=== PATIENT | female | born 1990 | race Caucasian/White ===

== ENCOUNTER 2023-04-01 21:03 | Observation (INO) | payer MEDICAID ==
--- NOTE | 2023-04-01 21:30 | ERPHSYRPT ---
- History of Present Illness Time Seen by Provider: 04/01/23 21:28 Historian: patient Exam Limitations: no limitations Physician History: Patient is a 32-year-old female presents to our ED for evaluation of shortness of breath cough nausea and distended abdomen. Patient admits to history of congestive heart failure. Symptoms started just prior to arrival. Patient exp eriencing pain in the epigastrium. No trauma. No fever. Symptoms are constant. Symptoms are moderate in intensity. No specific worsening improving factors. HPI limited as patient is anxious and under mild to moderate distress. Patient voices no other complaints or concerns at this time. Timing/Duration: today Activities at Onset: none Quality: aching Abdominal Pain Onset Location: epigastric Pain Radiation: no radiation Severity of Pain-Max: moderate Severity of Pain-Current: mild Associated Symptoms: other (Posterior symptom is cough) Previous symptoms: no prior history Allergies/Adverse Reactions: cephalexin [From Keflex] Allergy (Verified 04/01/23 21:21) Home Medications: Acetaminophen 325 mg [Tylenol 325 mg] 650 mg PO QID 04/01/23 [History] Albuterol Sulfate [Albuterol Sulfate Hfa] 2 puff IH Q4HPRN PRN 04/01/23 [History] Alprazolam [Xanax] 1 mg PO BID 04/01/23 [History] Amoxicillin 500 mg PO TID 04/01/23 [History] Apixaban [Eliquis] 5 mg PO BID 04/01/23 [History] Azithromycin [Azithromycin 250 mg Pack] 250 mg PO DAILY 04/01/23 [History] Benzonatate 200 mg PO TID 04/01/23 [History] Buspirone HCl 7.5 mg PO BID 04/01/23 [History] Carvedilol 3.125 mg [Coreg 3.125 MG] 3.125 mg PO BID 04/01/23 [History] Fluticasone/Umeclidin/Vilanter [Trelegy Ellipta 100-62.5-25] 1 puff IH DAILY 04/01/23 [History] Lactulose 45 ml PO Q8H 04/01/23 [History] Melatonin 6 mg PO HS 04/01/23 [History] Potassium Chloride 20 meq PO DAILY 04/01/23 [History] Torsemide 20 mg [Demadex 20 mg] 40 mg PO BID 04/01/23 [History] - Review of Systems Constitutional: No Symptoms, No Fever, No Chills Eyes: No Symptoms Ears, Nose, & Throat: No Symptoms Respiratory: No Symptoms, No Cough, No Dyspnea Cardiac: No Symptoms, No Chest Pain, No Edema, No Syncope Abdominal/Gastrointestinal: No Symptoms, No Abdominal Pain, No Nausea, No Vomiting, No Diarrhea Genitourinary Symptoms: No Symptoms, No Dysuria Musculoskeletal: No Symptoms, No Back Pain, No Neck Pain Skin: No Symptoms, No Rash Neurological: No Symptoms, No Dizziness, No Focal Weakness, No Sensory Changes Psychological: No Symptoms Endocrine: No Symptoms Hematologic/Lymphatic: No Symptoms Immunological/Allergic: No Symptoms All Other Systems: Reviewed and Negative - Nursing Vital Signs Nursing Vital Signs: Initial Vital Signs Temperature 97.6 F 04/01/23 21:05 Pulse Rate 94 H 04/01/23 21:05 Respiratory Rate 24 04/01/23 21:05 Blood Pressure 114/92 04/01/23 21:05 O2 Sat by Pulse Oximetry 99 04/01/23 21:05 Pain Scale Pain Intensity 5 - Physical Exam General Appearance: no apparent distress, alert Eye Exam: PERRL/EOMI, eyes nml inspection Ears, Nose, Throat Exam: normal ENT inspection, pharynx normal, moist mucous membranes Neck Exam: normal inspection, non-tender, supple, full range of motion Respiratory Exam: normal breath sounds, lungs clear, airway intact, No respir atory distress Cardiovascular Exam: regular rate/rhythm, normal heart sounds, normal peripheral pulses Gastrointestinal/Abdomen Exam: soft, No tenderness, No mass Back Exam: normal inspection, normal range of motion, No CVA tenderness, No vertebral tenderness Extremity Exam: normal inspection, normal range of motion, pelvis stable Neurologic Exam: alert, oriented x 3, cooperative, normal mood/affect, nml cerebellar function, sensation nml, No motor deficits Skin Exam: normal color, warm, dry Lymphatic Exam: No adenopathy SpO2 Interpretation: normal SpO2: 99 O2 Delivery: Room Air - Course Nursing assessment & vital signs reviewed: Yes EKG Interpreted by Me: RATE (94), Sinus Rhythm, NORMAL AXIS, NORMAL INTERVALS - CT Exams Chest CT Interpretation: Tele-radiologist Report (No PE. Lobar pneumonia, pulmonary congestion heart strain) Ordered Tests: Active Orders 24 hr Category Date Time Status Mission Planner STAT Care 04/01/23 21:26 Active EKG-ER Only STAT Care 04/01/23 21:25 Active IV Insertion STAT Care 04/01/23 21:25 Active Pulse Oximetry (ED) STAT Care 04/01/23 21:25 Active ABDOMEN AND PELVIS W CONTRAST [CT] Stat Exams 04/01/23 22:44 Completed CHEST WITH CONTRAST [CT] Stat Exams 04/01/23 22:42 Completed CBC W DIFF Stat Lab 04/01/23 21:48 Completed CMP Stat Lab 04/01/23 21:48 Completed D-DIMER QUANTITATIVE Stat Lab 04/01/23 21:48 Completed LIPASE Stat Lab 04/01/23 21:48 Completed Manual Differential NC Stat Lab 04/01/23 21:48 Completed NT PRO BNPII Stat Lab 04/01/23 21:48 Completed TROPONIN Q4H Lab 04/01/23 23:00 Completed TROPONIN Q4H Lab 04/02/23 03:58 Ordered TROPONIN Q4H Lab 04/02/23 07:58 Ordered UA W/RFX UR CULTURE Stat Lab 04/01/23 21:26 Ordered Medication Summary Discontinued Medications Generic Name Dose Route Start Last Admin Trade Name Freq PRN Reason Stop Dose Admin Furosemide 40 mg 04/02/23 00:35 04/02/23 00:36 Furosemide 40 Mg/4 Ml Vial IV 04/02/23 00:36 40 mg STAT ONE Administration Furosemide Confirm 04/02/23 00:36 Furosemide 40 Mg/4 Ml Vial Administered 04/02/23 00:37 Dose 40 mg .ROUTE .STK-MED ONE Morphine Sulfate 4 mg 04/01/23 21:44 04/01/23 22:00 Morphine Sulfate 4 Mg/Ml Injection IV 04/01/23 21:45 4 mg STAT ONE Administration Morphine Sulfate Confirm 04/01/23 21:59 Morphine Sulfate 4 Mg/Ml Injection Administered 04/01/23 22:00 Dose 4 mg .ROUTE .STK-MED ONE Ondansetron HCl 4 mg 04/01/23 21:57 04/01/23 22:00 Ondansetron Hcl 4 Mg/2 Ml Vial IV 04/01/23 21:58 4 mg STAT ONE Administration Ondansetron HCl Confirm 04/01/23 21:59 Ondansetron Hcl 4 Mg/2 Ml Vial Administered 04/01/23 22:00 Dose 4 mg .ROUTE .STK-MED ONE Lab/Rad Data: Laboratory Result Diagrams 04/01/23 21:48 04/01/23 21:48 Laboratory Results 04/01/23 04/01/23 04/01/23 Range/Units 23:00 21:48 21:48 WBC (4.0-10.5) x10^3/uL RBC (4.1-5.4) x10^6/uL Hgb (12.0-16.0) g/dL Hct (35-47) % MCV (78-100) fL MCH (26-32) pg MCHC (32-36) g/dL RDW (11.5-14.0) % Plt Count (150-450) x10^3/uL MPV (7.5-11.0) fL Gran % (36.0-66.0) % Immature Gran % (Auto) (0.00-0.4) % Nucleat RBC Rel Count (0.00-0.1) % Eos # (Auto) (0-0.5) x10^3/uL Immature Gran # (Auto) (0.00-0.03) x10^3u/L Absolute Lymphs (auto) (1.0-4.6) x10^3/uL Absolute Monos (auto) (0.0-1.3) x10^3/uL Absolute Nucleated RBC (0.00-0.01) x10^3u/L Lymphocytes % (24.0-44.0) % Monocytes % (0.0-12.0) % Eosinophils % (0.00-5.0) % Basophils % (0.0-0.4) % Absolute Granulocytes (1.4-6.9) x10^3/uL Basophils # (0-0.4) x10^3/uL D-Dimer 7.37 H* (0.0-0.50) mg/L Sodium (137-145) mmol/L Potassium (3.5-5.1) mmol/L Chloride (98-107) mmol/L Carbon Dioxide (22-30) mmol/L Anion Gap (5-15) MEQ/L BUN (7-17) mg/dL Creatinine (0.52-1.04) mg/dL Estimated GFR ML/MIN Glucose (74-106) mg/dL Calcium (8.4-10.2) mg/dL Total Bilirubin (0.2-1.3) mg/dL AST (14-36) U/L ALT (0-35) U/L Alkaline Phosphatase (38-126) U/L Troponin I < 0.012 (0.000-0.034) ng/mL NT-Pro-B Natriuret Pep 02900 (<300) pg/mL Serum Total Protein (6.3-8.2) g/dL Albumin (3.5-5.0) g/dL Lipase (23-300) U/L Slides for Path Review 04/01/23 04/01/23 Range/Units 21:48 21:48 WBC 10.7 H (4.0-10.5) x10^3/uL RBC 5.16 (4.1-5.4) x10^6/uL Hgb 13.0 (12.0-16.0) g/dL Hct 42.3 (35-47) % MCV 82.0 (78-100) fL MCH 25.2 L (26-32) pg MCHC 30.7 L (32-36) g/dL RDW 22.4 H (11.5-14.0) % Plt Count 332 (150-450) x10^3/uL MPV 9.4 (7.5-11.0) fL Gran % 58.4 (36.0-66.0) % Immature Gran % (Auto) 0.5 H (0.00-0.4) % Nucleat RBC Rel Count 0.2 H (0.00-0.1) % Eos # (Auto) 0.16 (0-0.5) x10^3/uL Immature Gran # (Auto) 0.05 H (0.00-0.03) x10^3u/L Absolute Lymphs (auto) 2.72 (1.0-4.6) x10^3/uL Absolute Monos (auto) 1.43 H (0.0-1.3) x10^3/uL Absolute Nucleated RBC 0.02 H (0.00-0.01) x10^3u/L Lymphocytes % 25.5 (24.0-44.0) % Monocytes % 13.4 H (0.0-12.0) % Eosinophils % 1.5 (0.00-5.0) % Basophils % 0.7 (0.0-0.4) % Absolute Granulocytes 6.23 (1.4-6.9) x10^3/uL Basophils # 0.08 (0-0.4) x10^3/uL D-Dimer (0.0-0.50) mg/L Sodium 130 L (137-145) mmol/L Potassium 5.3 H (3.5-5.1) mmol/L Chloride 97 L (98-107) mmol/L Carbon Dioxide 18 L (22-30) mmol/L Anion Gap 20.1 H (5-15) MEQ/L BUN 39 H (7-17) mg/dL Creatinine 1.34 H (0.52-1.04) mg/dL Estimated GFR 48.7 ML/MIN Glucose 102 (74-106) mg/dL Calcium 8.8 (8.4-10.2) mg/dL Total Bilirubin 1.60 H (0.2-1.3) mg/dL AST 54 H (14-36) U/L ALT 27 (0-35) U/L Alkaline Phosphatase 172 H (38-126) U/L Troponin I (0.000-0.034) ng/mL NT-Pro-B Natriuret Pep (<300) pg/mL Serum Total Protein 6.6 (6.3-8.2) g/dL Albumin 4.0 (3.5-5.0) g/dL Lipase 72 (23-300) U/L Slides for Path Review YES - Progress Progress: improved Progress Note: Patient is a 32-year-old female with a history of IV drug use, endocarditis congestive heart failure, liver disease presents to our ED for evaluation of cough shortness of breath distended abdomen and nausea. Patient advised staff that she currently has pneumonia and is being treated with antibiotics on an outpatient basis. Patient on amoxicillin and a Z-Yo currently. Physical exam reveals distended abdomen. Lung exam difficult as patient was very anxious and irritable. D-dimer positive. CTA chest completed along with CT abdomen and pelvis. CT chest confirms a lobar pneumonia. BNP elevated at 11,800. Pulmonary congestion observed on CT scan as well confirming congestive heart failure. Pleural effusions observed. Patient is fluid overloaded and has anasarca throughout. Sodium is [address] abdomen pelvis revealed ascites. Likely secondary to liver disease. Patient complained of epigastric pain. Patient advised staff that she has chronic right upper quadrant pain. Patient states that she has gallstones however due to her significant congestive heart failure patient is not a surgical candidate. Patient states her gallbladder is drained via a pigtail catheter as needed. Patient's field account director is . Patient is currently scheduled for a [place] to be performed on Thursday at [facility]. Patient has a complicated past medical history however she did not go to [facility] at as she preferred to come to our hospital instead. Patient declined transfer. Patient received a dose of Lasix in our ED. 04/02/23 01:34 Complexity of problem addressed is high, severe exacerbation. No critical care time Complexity of data reviewed and analyzed is extensive. Test ordered. Test reviewed. Clinical correlation made between findings and history and physical examination. Case discussed with Dr. Camargo. Management discussed as well. Patient will be admitted to [facility] for further evaluation and treatment. Risk of complication and or risk morbidity/mortality of patient management is high. Patient will require hospitalization for further evaluation and treatment. Vital stable. Plan of care established for shared decision making. Patient voices no other complaints or concerns at this time. Portions of this note were created with voice recognition technology. There may be grammatical, spelling, punctuation or sound alike errors 04/02/23 01:39 Discussed with : Stephanie (Case discussed with Dr. Pennington who accepts admission to observation. Dr. Pennington excepted admission at 1:05 AM) Will see patient in: hospital (observation) Counseled pt/family regarding: lab results, diagnosis, rad results - Departure Departure Disposition: Observation Clinical Impression: Lobar pneumonia, Pulmonary congestion, Shortness of breath, Right-sided pleural effusion, Ascites, Cardiomegaly, GENERALIZED ANASARCA, Hepatomegaly, Parenchymal liver disease, Cholelithiasis, Pericholecystic edema, Right heart strain, Hyponatremia, High anion gap metabolic acidosis, Congestive heart failure Condition: Stable Critical Care Time: No Referrals: SAMSON WELCH MD [Primary Care Provider] - Follow up/PCP as directed Instructions: Heart Failure
[2023-04-01] MEDS ORDERED: MORPHINE SULFATE 4 MG INJ IV ONE (21:44)
[2023-04-01 21:50] LABS: Absolute Neutrophil Ct (ANC) 6.23 x10^3/uL (1.4-6.9); BASOPHIL % 0.7 % (0.0-0.4); Basophil (Absolute #) 0.08 x10^3/uL (0-0.4); Eosinophil % 1.5 % (0.00-5.0); Eosinophil (Absolute #) 0.16 x10^3/uL (0-0.5); Hematocrit 42.3 % (35-47); IMMATURE GRAN # 0.05 x10^3u/L (0.00-0.03); IMMATURE GRAN % 0.5 % (0.00-0.4); Lymphocyte (Absolute #) 2.72 x10^3/uL (1.0-4.6); Lymphocytes % 25.5 % (24.0-44.0); Mean Corpuscular Hemoglobin 25.2 pg (26-32); Mean Corpuscular Hgb Concent. 30.7 g/dL (32-36); Mean Platelet Volume 9.4 fL (7.5-11.0); Monocyte (Absolute #) 1.43 x10^3/uL (0.0-1.3); Monocytes % 13.4 % (0.0-12.0); NUCLEATED RBC # 0.02 x10^3u/L (0.00-0.01); NUCLEATED RBC % 0.2 % (0.00-0.1); Neutrophil % 58.4 % (36.0-66.0); Platelet Count 332 x10^3/uL (150-450); Red Blood Count 5.16 x10^6/uL (4.1-5.4); Red Cell Distribution Width 22.4 % (11.5-14.0); White Blood Count 10.7 x10^3/uL (4.0-10.5)
[2023-04-01] MEDS ORDERED: Zofran 4 MG/2 ML VIAL IV ONE (21:57)
[2023-04-01] MEDS ORDERED: MORPHINE SULFATE 4 MG INJ ONE (21:59)
[2023-04-01] MEDS ORDERED: Zofran 4 MG/2 ML VIAL ONE (21:59)
[2023-04-01 22:06] LABS: ANION GAP 20.1 MEQ/L (5-15); BILIRUBIN,TOTAL 1.6 mg/dL (0.2-1.3); Calcium 8.8 mg/dL (8.4-10.2); Creatinine 1 1.34 mg/dL (0.52-1.04); EST GLOMERULAR FILTRATION RATE 48.7 ML/MIN; Potassium 5.3 mmol/L (3.5-5.1); Total Protein 6.6 g/dL (6.3-8.2)
--- NOTE | 2023-04-02 00:17 | XRAY ---
CLINICAL HISTORY:sob, PE? COMPARISON:None TECHNIQUE:Axial CT images of the chest were acquired with administration of intravenous contrast. Coronal and sagittal reconstructions were obtained. FINDINGS: No evidence of pulmonary thromboembolism. Heart is moderately enlarged with left ventricular dilatation. Pacemakers leads noted in situ, appropriately placed. There is reflux of contrast in IVC and hepatic veins, which could represent heart strain. Mild right sided pleural effusion noted. Smooth interstitial thickening seen in right lung. Confluent areas of ground-glass haziness with interspersed consolidation seen in right lower lobe. Peribronchovascular edema noted in right lower lobe. Few faint areas of ground-glass haziness also noted in posterior segment of right upper lobe, lateral segment of right middle and apicoposterior segment of left upper lobe. No free or encysted pleural effusion on left side. Fe subcentimetric mediastinal nodes identified. There is no definite mass lesion in the chest wall or bony thorax. Scanned upper abdomen is unremarkable. IMPRESSION: 1. No evidence of pulmonary thromboembolism 2. Moderate cardiomegaly with suggestion of heart strain, suggested echocardiographic correlation 3. Mild right sided pleural effusion with confluent areas of ground-glass haziness in right lower lobe, consolidations and interstitial thickening in right lung, suggestive of lobar pneumonia. 4. Few faint areas of ground-glass haziness in rest of the right lung and left upper lobe Electronically Signed by: Cuca Bentley MD. (04/01/2023 23:15:51 DESIGN DRAFTSMAN)
--- NOTE | 2023-04-02 00:27 | XRAY ---
CLINICAL HISTORY:pain COMPARISON:None. TECHNIQUE:CT scan of the abdomen and pelvis was performed with intravenous contrast. Coronal and sagittal reconstructive images were also obtained. FINDINGS: Sections of the lower thorax show mild right sided pleural effusion with confluent areas of ground-glass haziness, interspersed with patchy consolidation. Moderate cardiomegaly noted with reflux of contrast in IVC and hepatic veins, could represent right heart strain. Pacemaker leads noted in situ. Abdomen: Generalized anasarca noted. Mild to moderate ascites noted. The liver is enlarged, measuring 17.5 cm craniocaudally and shows altered parenchymal attenuation, likely representing liver parenchymal disease. The portal vein, intrahepatic biliary radicals and the bile ducts are normal. The spleen, pancreas, adrenal glands are unremarkable. The kidneys are unremarkable. They are normal in size and shape. No calculi or hydronephrosis. The gallbladder is distended and shows hyperdensities in its dependent portion likely representing calculi . Mild pericholecystic edema noted. The ascending colon, the transverse colon, the descending colon, visualized small bowel loops are unremarkable. There is no evidence of significant enlargement of the mesenteric or retroperitoneal lymph nodes. Small uncomplicated umbilical hernia noted. Pelvis: The urinary bladder is unremarkable. The rectosigmoid colon is unremarkable. The uterus and adnexa appear unremarkable. No evidence of pelvic lymphadenopathy. No definite bony abnormalities could be depicted. IMPRESSION: 1. Mild right sided pleural effusion with confluent areas of ground-glass haziness, interspersed with patchy consolidation. 2. Moderate cardiomegaly noted with reflux of contrast in IVC and hepatic veins, could represent right heart strain. suggested echocardiographic correlation 3. Generalized anasarca. 4. Mild to moderate ascites, this could be due to decompensated liver or heart disease. Clinical correlation is warranted. 5. Suggestion of liver parenchymal disease: Suggested correlation with LFTs. 6. Cholelithiasis. Electronically Signed by: Cuca Bentley MD. (04/01/2023 23:26:14 SHEET METAL INSULATOR)
[2023-04-02] MEDS ORDERED: Lasix 40 MG/4 ML IV ONE (00:35)
[2023-04-02] MEDS ORDERED: Lasix 40 MG/4 ML ONE (00:36)
[2023-04-02 00:37] LABS: Slide Review 1 YES
[2023-04-02] MEDS ORDERED: VENTOLIN COMMON CANISTER IH PRN (03:22)
[2023-04-02] MEDS ORDERED: Lasix 40 MG/4 ML IV SCH ×2 (03:30→14:00)
[2023-04-02] MEDS ORDERED: LACTULOSE 10 GM/15 ML PO SCH (03:30)
--- NOTE | 2023-04-02 03:37 | PCM.HP ---
History of Present Illness - Chief Complaint Chief Complaint: Lobar pneumonia, fluid overload, congestive heart failure, History of Present Illness: 32 yo wf with hx of CHF(EF 5%), Hx of Endocarditis, CKD, presents with a 5 day hx of increased sob. PT started coughing about 6 days ago with chills. She was dx'd with CAP(RLL) and started on amoxicillin/azithro. Since starting antibxs pt has become progressively sob. She also had noted increased abd swelling. She has been compliant with diuretics but has increased weight. In ED pt was noted to have predominantly RLL pneumonia and decompensation from HF standpoint. - Review of Systems Constitutional: Chills Eyes: No Symptoms Ears, Nose, & Throat: No Symptoms Respiratory: Cough, Short Of Breath Cardiac: Edema Abdominal/Gastrointestinal: Other (distension) Genitourinary Symptoms: No Symptoms Musculoskeletal: No Symptoms Skin: No Symptoms Neurological: No Symptoms Psychological: No Symptoms Medications & Allergies Home Medications: Home Medication List Acetaminophen 325 mg [Tylenol 325 mg] 650 mg PO QID 04/01/23 [History Confirmed 04/01/23] Albuterol Sulfate [Albuterol Sulfate Hfa] 2 puff IH Q4HPRN PRN 04/01/23 [History Confirmed 04/01/23] Alprazolam [Xanax] 1 mg PO BID 04/01/23 [History Confirmed 04/01/23] Amoxicillin 500 mg PO TID 04/01/23 [History Confirmed 04/01/23] Apixaban [Eliquis] 5 mg PO BID 04/01/23 [History Confirmed 04/01/23] Azithromycin [Azithromycin 250 mg Pack] 250 mg PO DAILY 04/01/23 [History Confirmed 04/01/23] Benzonatate 200 mg PO TID 04/01/23 [History Confirmed 04/01/23] Buspirone HCl 7.5 mg PO BID 04/01/23 [History Confirmed 04/01/23] Carvedilol 3.125 mg [Coreg 3.125 MG] 3.125 mg PO BID 04/01/23 [History Confirmed 04/01/23] Fluticasone/Umeclidin/Vilanter [Trelegy Ellipta 100-62.5-25] 1 puff IH DAILY 04/01/23 [History Confirmed 04/01/23] Lactulose 45 ml PO Q8H 04/01/23 [History Confirmed 04/01/23] Melatonin 6 mg PO HS 04/01/23 [History Confirmed 04/01/23] Potassium Chloride 40 meq PO BID 04/01/23 [History Confirmed 04/02/23] Torsemide 20 mg [Demadex 20 mg] 40 mg PO BID 04/01/23 [History Confirmed 04/01/23] Allergies/Adverse Reactions: Allergies Allergy/AdvReac Type Severity Reaction Status Date / Time cephalexin [From Keflex] Allergy Verified 04/01/23 21:21 - Past Medical History Past Medical History: Yes Neurological History: No Pertinent History ENT History: No Pertinent History Cardiac History: Arrhythmia, Congestive Heart Failure, Myocardial Infarction (IA) Respiratory History: Asthma, CHF, COPD, Pneumonia Endocrine Medical History: Diabetes Type II, Liver Disease Musculoskelatal History: No Pertinent History GI Medical History: No Pertinent History, Gallbladder Disease History: Renal Disease Pyscho-Social History: Anxiety Reproductive Disorders: No Pertinent History Comment: blood clot in heart. stage III kidney disease. endocarditis - Female History Are you now?: No - Past Surgical History Past Surgical History: Yes Neuro Surgical History: No Pertinent History Cardiac History: Cardiac Catheterization, Internal Defibrillator, Pacemaker Respiratory Surgery: No Pertinent History GI Surgical History: Other Genitourinary Surgical Hx: No Pertinent History Musculskeletal Surgical Hx: No Pertinent History Female Surgical History: Section Other Surgical History: x2, teeth removal, drain in gallbladder and removed, thoracenteseis x2; [place] - Social History Smoking Status: Current every day smoker How long have you smoked: 21 years Exposure to second hand smoke: Yes Alcohol: None Drug Use: none, methamphetamines - Physical Exam Vital Signs: Vital Signs - 24 hr Temp Pulse Resp BP BP Pulse Ox 04/02/23 03:00 96 04/02/23 02:02 97.2 F 82 20 107/74 98 04/02/23 01:42 99 04/02/23 01:01 91 H 18 91/65 99 04/02/23 00:30 94 H 16 97/65 99 04/02/23 00:00 92 H 22 102/88 98 04/01/23 23:56 94 H 19 109/82 97 04/01/23 22:38 95 H 23 93/69 99 08/30/23 22:00 95 H 23 106/78 97 04/01/23 21:25 97 04/01/23 21:05 97.6 F 94 H 24 114/92 99 General Appearance: no apparent distress Neurologic Exam: alert, oriented x 3, cooperative Eye Exam: PERRL/EOMI, eyes nml inspection Ears, Nose, Throat Exam: normal ENT inspection, TM abnormal (L) Respiratory Exam: rhonchi Cardiovascular Exam: regular rate/rhythm, normal heart sounds Gastrointestinal/Abdomen Exam: soft, normal bowel sounds, distention Extremity Exam: normal inspection, pedal edema Skin Exam: normal color Results - Labs Lab/Micro Results: Lab Results-Last 24 Hours 04/01/23 04/01/23 04/01/23 Range/Units 21:48 21:48 21:48 WBC 10.7 H (4.0-10.5) x10^3/uL RBC 5.16 (4.1-5.4) x10^6/uL Hgb 13.0 (12.0-16.0) g/dL Hct 42.3 (35-47) % MCV 82.0 (78-100) fL MCH 25.2 L (26-32) pg MCHC 30.7 L (32-36) g/dL RDW 22.4 H (11.5-14.0) % Plt Count 332 (150-450) x10^3/uL MPV 9.4 (7.5-11.0) fL Gran % 58.4 (36.0-66.0) % Immature Gran % (Auto) 0.5 H (0.00-0.4) % Nucleat RBC Rel Count 0.2 H (0.00-0.1) % Eos # (Auto) 0.16 (0-0.5) x10^3/uL Immature Gran # (Auto) 0.05 H (0.00-0.03) x10^3u/L Absolute Lymphs (auto) 2.72 (1.0-4.6) x10^3/uL Absolute Monos (auto) 1.43 H (0.0-1.3) x10^3/uL Absolute Nucleated RBC 0.02 H (0.00-0.01) x10^3u/L Lymphocytes % 25.5 (24.0-44.0) % Monocytes % 13.4 H (0.0-12.0) % Eosinophils % 1.5 (0.00-5.0) % Basophils % 0.7 (0.0-0.4) % Absolute Granulocytes 6.23 (1.4-6.9) x10^3/uL Basophils # 0.08 (0-0.4) x10^3/uL D-Dimer 7.37 H* (0.0-0.50) mg/L Sodium 130 L (137-145) mmol/L Potassium 5.3 H (3.5-5.1) mmol/L Chloride 97 L (98-107) mmol/L Carbon Dioxide 18 L (22-30) mmol/L Anion Gap 20.1 H (5-15) MEQ/L BUN 39 H (7-17) mg/dL Creatinine 1.34 H (0.52-1.04) mg/dL Estimated GFR 48.7 ML/MIN Glucose 102 (74-106) mg/dL Calcium 8.8 (8.4-10.2) mg/dL Total Bilirubin 1.60 H (0.2-1.3) mg/dL AST 54 H (14-36) U/L ALT 27 (0-35) U/L Alkaline Phosphatase 172 H (38-126) U/L Troponin I (0.000-0.034) ng/mL NT-Pro-B Natriuret Pep (<300) pg/mL Serum Total Protein 6.6 (6.3-8.2) g/dL Albumin 4.0 (3.5-5.0) g/dL Lipase 72 (23-300) U/L Slides for Path Review YES 04/01/23 04/01/23 Range/Units 21:48 23:00 WBC (4.0-10.5) x10^3/uL RBC (4.1-5.4) x10^6/uL Hgb (12.0-16.0) g/dL Hct (35-47) % MCV (78-100) fL MCH (26-32) pg MCHC (32-36) g/dL RDW (11.5-14.0) % Plt Count (150-450) x10^3/uL MPV (7.5-11.0) fL Gran % (36.0-66.0) % Immature Gran % (Auto) (0.00-0.4) % Nucleat RBC Rel Count (0.00-0.1) % Eos # (Auto) (0-0.5) x10^3/uL Immature Gran # (Auto) (0.00-0.03) x10^3u/L Absolute Lymphs (auto) (1.0-4.6) x10^3/uL Absolute Monos (auto) (0.0-1.3) x10^3/uL Absolute Nucleated RBC (0.00-0.01) x10^3u/L Lymphocytes % (24.0-44.0) % Monocytes % (0.0-12.0) % Eosinophils % (0.00-5.0) % Basophils % (0.0-0.4) % Absolute Granulocytes (1.4-6.9) x10^3/uL Basophils # (0-0.4) x10^3/uL D-Dimer (0.0-0.50) mg/L Sodium (137-145) mmol/L Potassium (3.5-5.1) mmol/L Chloride (98-107) mmol/L Carbon Dioxide (22-30) mmol/L Anion Gap (5-15) MEQ/L BUN (7-17) mg/dL Creatinine (0.52-1.04) mg/dL Estimated GFR ML/MIN Glucose (74-106) mg/dL Calcium (8.4-10.2) mg/dL Total Bilirubin (0.2-1.3) mg/dL AST (14-36) U/L ALT (0-35) U/L Alkaline Phosphatase (38-126) U/L Troponin I < 0.012 (0.000-0.034) ng/mL NT-Pro-B Natriuret Pep 30605 (<300) pg/mL Serum Total Protein (6.3-8.2) g/dL Albumin (3.5-5.0) g/dL Lipase (23-300) U/L Slides for Path Review - Radiology Impressions Radiology Exams & Impressions: Radiology Procedures Category Date Time Status ABDOMEN AND PELVIS W CONTRAST [CT] Stat Exams 04/01/23 22:44 Completed CHEST WITH CONTRAST [CT] Stat Exams 04/01/23 22:42 Completed US ABDOMEN LIMITED [ABDOMINAL-LIMITED] [US] Routine Exams 04/02/23 03:24 Ordered Assessment/Plan (1) Congestive heart failure Current Visit: Yes Status: Acute Assessment & Plan: 1. CAP: RLL. ?FAiled outpt therapy. Add zosyn. Continue azithro for 2 more days. 2. CHF exac: acute on chronic. Systolic. Continue lasix 40 mg Q8. Continue low dose Beta andrew. 3. CKD: Cr appears at baseline. 4. Hyponatremia: Hypervolemic. Watch with diuresis. 5. Check Lactate 6. Increased LFTs: Hx of cholecystitis treated with C-tube in past. Will order US to eval. 7. Ascites: US guided paracentesis during this admit 8. FEN: oral diet 9. PX: Continue doac. Benjamin Best MD entire encounter done via telemedicine Code(s): I50.9 - HEART FAILURE, UNSPECIFIED Telemedicine Encounter - Telemedicine Encounter Telemedicine Encounter: The entirety of this encounter was performed via Telemedicine"
[2023-04-02] MEDS ORDERED: LACTULOSE 20 GM/30ML UD CUP ONE (04:00)
[2023-04-02 04:05] LABS: Appearance Clear (Clear); Bacteria None Seen /HPF (None Seen); Bilirubin Negative (Negative); Blood Small (Negative); Epithelial Cells Rare /HPF (None Seen); Glucose, Urine Negative (Negative); Ketones Negative (Negative); Leukocyte Esterase Trace (Negative); Nitrite Negative (Negative); Protein,Urine Dip Negative (Negative); RBC 0-2 /HPF (0-5); Urobilinogen 0.2 mg/dL (0.2)
[2023-04-02] MEDS: NORCO 5/325 MG PO PRN ×2 (04:06→13:03)
[2023-04-02 04:57] LABS: Absolute Neutrophil Ct (ANC) 6.12 x10^3/uL (1.4-6.9); BASOPHIL % 0.7 % (0.0-0.4); Basophil (Absolute #) 0.07 x10^3/uL (0-0.4); Eosinophil % 1.6 % (0.00-5.0); Eosinophil (Absolute #) 0.16 x10^3/uL (0-0.5); Hematocrit 41.8 % (35-47); IMMATURE GRAN # 0.02 x10^3u/L (0.00-0.03); IMMATURE GRAN % 0.2 % (0.00-0.4); Lymphocyte (Absolute #) 2.25 x10^3/uL (1.0-4.6); Lymphocytes % 22.6 % (24.0-44.0); Mean Cell Volume 81.5 fL (78-100); Mean Corpuscular Hemoglobin 25.3 pg (26-32); Mean Corpuscular Hgb Concent. 31.1 g/dL (32-36); Mean Platelet Volume 9.6 fL (7.5-11.0); Monocyte (Absolute #) 1.32 x10^3/uL (0.0-1.3); Monocytes % 13.3 % (0.0-12.0); Neutrophil % 61.6 % (36.0-66.0); Platelet Count 311 x10^3/uL (150-450); Red Blood Count 5.13 x10^6/uL (4.1-5.4); Red Cell Distribution Width 22.9 % (11.5-14.0); White Blood Count 9.9 x10^3/uL (4.0-10.5)
[2023-04-02 04:58] LABS: ANION GAP 22.1 MEQ/L (5-15); Calcium 8.9 mg/dL (8.4-10.2); Creatinine 1 1.44 mg/dL (0.52-1.04); EST GLOMERULAR FILTRATION RATE 44.8 ML/MIN; Potassium 4.5 mmol/L (3.5-5.1)
[2023-04-02] MEDS ORDERED: PIPERACILLIN/TAZOBACTAM IV ONE (05:21)
[2023-04-02] MEDS ORDERED: Sodium Chloride 100ML MINI-BAG PLUS 100 ML IV ONE (05:22)
[2023-04-02 05:34] LABS: Slide Review 1 YES
[2023-04-02] MEDS: PIPERACILLIN/TAZOBACTAM 3.375 GM in Sodium Chloride 100ML MINI-BAG PLUS 100 ML IV SCH ×2 (05:53→11:30)
[2023-04-02] MEDS ORDERED: Advair Hfa 115/21 Common canister IH SCH (07:00)
[2023-04-02] MEDS ORDERED: LACTULOSE 20 GM/30ML UD CUP PO SCH ×2 (07:00→14:00)
[2023-04-02 07:23] LABS: ADD URINE CULTURE? YES (NO)
[2023-04-02] MEDS: Tessalon Perles 100 MG PO SCH ×2 (09:21→14:09)
[2023-04-02 09:32] LABS: INFLUENZA A NEGATIVE (NEGATIVE); INFLUENZA B NEGATIVE (NEGATIVE); RESPIRATORY SYNCTIAL VIRUS NEGATIVE (NEGATIVE); SARS-CoV-2 Xpert Express NEGATIVE (NEGATIVE)
[2023-04-02] MEDS ORDERED: XANAX 1 MG PO SCH (10:00)
[2023-04-02] MEDS ORDERED: NON-FORMULARY ITEM (Buspirone Hcl [Buspirone Hcl] 7.5 MG Tablet) PO SCH (10:00)
[2023-04-02] MEDS ORDERED: NON-FORMULARY ITEM (Benzonatate [Benzonatate] 200 MG Capsule) PO SCH (10:00)
[2023-04-02] MEDS ORDERED: NON-FORMULARY ITEM (Apixaban [Eliquis] 5 MG Tablet) PO SCH (10:00)
[2023-04-02] MEDS ORDERED: BUSPAR 5 MG PO SCH (10:00)
[2023-04-02] MEDS ORDERED: Zithromax 250 MG TABLET PO SCH (10:00)
[2023-04-02] MEDS ORDERED: Coreg 3.125 MG PO SCH (10:00)
[2023-04-02] MEDS ORDERED: Spiriva 18 Mcg/Cap Inhaler IH SCH (10:00)
[2023-04-02] MEDS ORDERED: ELIQUIS 2.5 MG TABLET PO SCH ×3 (10:00→22:00)
--- NOTE | 2023-04-02 10:27 | XRAY ---
Indication: Right upper quadrant pain. Cholelithiasis on recent CT. Two-dimensional right upper quadrant abdominal sonogram performed. Comparison: None Gallbladder normally distended with multiple small gallstones, largest 1.7 cm. Abnormal gallbladder wall thickening up to 4.9 mm. Common bile duct prominent up to 8.9 mm. No intrahepatic bladder distention. 21.2 cm hepatomegaly without focal solid/cystic mass. Incidental tiny perihepatic fluid. Remaining visualized pancreas and right kidney are sonographically unremarkable. Right kidney measures 12.3 cm in length. Impression: 1. Cholelithiasis with wall thickening. Rule out chronic cholecystitis. 2. Hepatomegaly with tiny perihepatic fluid.
--- NOTE | 2023-04-02 11:48 | PCM.NOTE ---
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 She recently was hospitalized for uncomplicated cholelithiasis and had a cholecystostomy tube placed. She was released from a rehab facility and the tube was removed 2 days ago. She was in the rehab facilty for continue care of the tube and OP antibiotics. Pt reprts she started coughing about 6 days ago with chills. She was dx'd with CAP(RLL) and started on amoxicillin/azithro by [facility] and was released on 03/29 . Since starting antibxs pt has become progressively SOB. She also had noted increased abd swelling. She has been compliant with diuretics but has increased weight. In ED pt was noted to have predominantly RLL pneumonia and decompensation from HF standpoint. She was scheduled to have an OP [place] tomorrow for infective endocarditis with Dr. Schwab. Cardiology consult order placed. Order to tx to [facility] placed for higher level of care. Pt has volume overload with a low EJ%. Pt is a good candidate for Palliative care and will discuss with case management to arrange if pt is amenable. - Review of Systems Constitutional: No Fever, No Chills Eyes: No Symptoms Ears, Nose, & Throat: No Symptoms Respiratory: Cough, Orthopnea, Short Of Breath Cardiac: No Chest Pain, No Edema, No Syncope Abdominal/Gastrointestinal: Abdominal Pain (LUQ pain), Other (abd distention), No Nausea, No Vomiting, No Diarrhea Genitourinary Symptoms: No Dysuria Musculoskeletal: No Back Pain, No Neck Pain Skin: No Rash Neurological: No Dizziness, No Focal Weakness, No Sensory Changes Psychological: No Symptoms Endocrine: No Symptoms Hematologic/Lymphatic: No Symptoms Immunological/Allergic: No Symptoms Objective Exam General Appearance: mild distress, alert Neurologic Exam: alert, oriented x 3, cooperative, normal mood/affect, nml cerebellar function, sensation nml, No motor deficits Skin Exam: normal color, warm, dry Eye Exam: PERRL, EOMI, eyes nml inspection Ears, Nose, Throat Exam: normal ENT inspection, pharynx normal, moist mucous membranes Neck Exam: normal inspection, non-tender, supple, full range of motion Respiratory Exam: diminished breath sounds (RLL), No respiratory distress Cardiovascular Exam: regular rate/rhythm, murmur Gastrointestinal/Abdomen Exam: soft, tenderness (with palpation of RUQ and LUQ), distention, hepatomegaly, No mass Extremity Exam: normal inspection, normal range of motion Back Exam: normal inspection, normal range of motion, No CVA tenderness, No vertebral tenderness Pelvic Exam: deferred Rectal Exam: deferred OBJECTIVE DATA Vital Signs: Vital Signs - 24 hr Temp Pulse Resp BP BP BP Pulse Ox 04/02/23 07:53 97.2 F 86 19 120/80 95 04/02/23 07:18 86 16 97 04/02/23 04:00 97.3 F 89 18 117/79 98 04/02/23 03:55 96 H 20 98 04/02/23 03:00 96 04/02/23 02:02 97.2 F 82 20 107/74 98 04/02/23 01:42 99 04/02/23 01:01 91 H 18 91/65 99 04/02/23 00:30 94 H 16 97/65 99 04/02/23 00:00 92 H 22 102/88 98 04/01/23 23:56 94 H 19 109/82 97 04/01/23 22:38 95 H 23 93/69 99 04/01/23 22:00 95 H 23 106/78 97 04/01/23 21:25 97 04/01/23 21:05 97.6 F 94 H 24 114/92 99 Pain Assessment - Last Documented Pain Intensity 5 Pain Scale Used [facility] Intake and Output: Intake & Output 03/30/23 03/31/23 04/01/23 04/02/23 11:59 11:59 11:59 11:59 Output Total 1800 Balance -1800 Weight 90.1 kg Lab Results: Lab Results-Last 24 Hours 04/01/23 04/01/23 04/01/23 Range/Units 03:45 21:48 21:48 WBC 10.7 H (4.0-10.5) x10^3/uL RBC 5.16 (4.1-5.4) x10^6/uL Hgb 13.0 (12.0-16.0) g/dL Hct 42.3 (35-47) % MCV 82.0 (78-100) fL MCH 25.2 L (26-32) pg MCHC 30.7 L (32-36) g/dL RDW 22.4 H (11.5-14.0) % Plt Count 332 (150-450) x10^3/uL MPV 9.4 (7.5-11.0) fL Gran % 58.4 (36.0-66.0) % Immature Gran % (Auto) 0.5 H (0.00-0.4) % Nucleat RBC Rel Count 0.2 H (0.00-0.1) % Eos # (Auto) 0.16 (0-0.5) x10^3/uL Immature Gran # (Auto) 0.05 H (0.00-0.03) x10^3u/L Absolute Lymphs (auto) 2.72 (1.0-4.6) x10^3/uL Absolute Monos (auto) 1.43 H (0.0-1.3) x10^3/uL Absolute Nucleated RBC 0.02 H (0.00-0.01) x10^3u/L Lymphocytes % 25.5 (24.0-44.0) % Monocytes % 13.4 H (0.0-12.0) % Eosinophils % 1.5 (0.00-5.0) % Basophils % 0.7 (0.0-0.4) % Absolute Granulocytes 6.23 (1.4-6.9) x10^3/uL Basophils # 0.08 (0-0.4) x10^3/uL D-Dimer (0.0-0.50) mg/L Sodium 130 L (137-145) mmol/L Potassium 5.3 H (3.5-5.1) mmol/L Chloride 97 L (98-107) mmol/L Carbon Dioxide 18 L (22-30) mmol/L Anion Gap 20.1 H (5-15) MEQ/L BUN 39 H (7-17) mg/dL Creatinine 1.34 H (0.52-1.04) mg/dL Estimated GFR 48.7 ML/MIN Glucose 102 (74-106) mg/dL Lactic Acid (0.4-2.0) Calcium 8.8 (8.4-10.2) mg/dL Total Bilirubin 1.60 H (0.2-1.3) mg/dL AST 54 H (14-36) U/L ALT 27 (0-35) U/L Alkaline Phosphatase 172 H (38-126) U/L Troponin (0.00-0.03) ng/mL Troponin I (0.000-0.034) ng/mL NT-Pro-B Natriuret Pep (<300) pg/mL Serum Total Protein 6.6 (6.3-8.2) g/dL Albumin 4.0 (3.5-5.0) g/dL Lipase 72 (23-300) U/L Urine Color Yellow (Yellow) Urine Appearance Clear (Clear) Urine pH 6.0 (4.6-8.0) Ur Specific Neche 1.020 (1.005-1.030) Urine Protein Negative (Negative) Urine Glucose (UA) Negative (Negative) mg/dL Urine Ketones Negative (Negative) Urine Blood Small A (Negative) Urine Nitrite Negative (Negative) Urine Bilirubin Negative (Negative) Urine Urobilinogen 0.2 (0.2) mg/dL Ur Leukocyte Esterase Trace A (Negative) U Hyaline Cast (Auto) 6-10 A (0-2) /LPF Urine Microscopic RBC 0-2 (0-5) /HPF Urine Microscopic WBC 3-5 (0-5) /HPF Ur Epithelial Cells Rare (None Seen) /HPF Urine Bacteria None Seen (None Seen) /HPF Urine Culture Reflexed YES (NO) Influenza Type A Ag (NEGATIVE) Influenza Type B Ag (NEGATIVE) RSV (PCR) (NEGATIVE) SARS-CoV-2 (PCR) (NEGATIVE) Slides for Path Review YES 04/01/23 04/01/23 04/01/23 Range/Units 21:48 21:48 23:00 WBC (4.0-10.5) x10^3/uL RBC (4.1-5.4) x10^6/uL Hgb (12.0-16.0) g/dL Hct (35-47) % MCV (78-100) fL MCH (26-32) pg MCHC (32-36) g/dL RDW (11.5-14.0) % Plt Count (150-450) x10^3/uL MPV (7.5-11.0) fL Gran % (36.0-66.0) % Immature Gran % (Auto) (0.00-0.4) % Nucleat RBC Rel Count (0.00-0.1) % Eos # (Auto) (0-0.5) x10^3/uL Immature Gran # (Auto) (0.00-0.03) x10^3u/L Absolute Lymphs (auto) (1.0-4.6) x10^3/uL Absolute Monos (auto) (0.0-1.3) x10^3/uL Absolute Nucleated RBC (0.00-0.01) x10^3u/L Lymphocytes % (24.0-44.0) % Monocytes % (0.0-12.0) % Eosinophils % (0.00-5.0) % Basophils % (0.0-0.4) % Absolute Granulocytes (1.4-6.9) x10^3/uL Basophils # (0-0.4) x10^3/uL D-Dimer 7.37 H* (0.0-0.50) mg/L Sodium (137-145) mmol/L Potassium (3.5-5.1) mmol/L Chloride (98-107) mmol/L Carbon Dioxide (22-30) mmol/L Anion Gap (5-15) MEQ/L BUN (7-17) mg/dL Creatinine (0.52-1.04) mg/dL Estimated GFR ML/MIN Glucose (74-106) mg/dL Lactic Acid (0.4-2.0) Calcium (8.4-10.2) mg/dL Total Bilirubin (0.2-1.3) mg/dL AST (14-36) U/L ALT (0-35) U/L Alkaline Phosphatase (38-126) U/L Troponin (0.00-0.03) ng/mL Troponin I < 0.012 (0.000-0.034) ng/mL NT-Pro-B Natriuret Pep 95766 (<300) pg/mL Serum Total Protein (6.3-8.2) g/dL Albumin (3.5-5.0) g/dL Lipase (23-300) U/L Urine Color (Yellow) Urine Appearance (Clear) Urine pH (4.6-8.0) Ur Specific Neche (1.005-1.030) Urine Protein (Negative) Urine Glucose (UA) (Negative) mg/dL Urine Ketones (Negative) Urine Blood (Negative) Urine Nitrite (Negative) Urine Bilirubin (Negative) Urine Urobilinogen (0.2) mg/dL Ur Leukocyte Esterase (Negative) U Hyaline Cast (Auto) (0-2) /LPF Urine Microscopic RBC (0-5) /HPF Urine Microscopic WBC (0-5) /HPF Ur Epithelial Cells (None Seen) /HPF Urine Bacteria (None Seen) /HPF Urine Culture Reflexed (NO) Influenza Type A Ag (NEGATIVE) Influenza Type B Ag (NEGATIVE) RSV (PCR) (NEGATIVE) SARS-CoV-2 (PCR) (NEGATIVE) Slides for Path Review 04/02/23 04/02/23 04/02/23 Range/Units 04:10 04:19 04:19 WBC (4.0-10.5) x10^3/uL RBC (4.1-5.4) x10^6/uL Hgb (12.0-16.0) g/dL Hct (35-47) % MCV (78-100) fL MCH (26-32) pg MCHC (32-36) g/dL RDW (11.5-14.0) % Plt Count (150-450) x10^3/uL MPV (7.5-11.0) fL Gran % (36.0-66.0) % Immature Gran % (Auto) (0.00-0.4) % Nucleat RBC Rel Count (0.00-0.1) % Eos # (Auto) (0-0.5) x10^3/uL Immature Gran # (Auto) (0.00-0.03) x10^3u/L Absolute Lymphs (auto) (1.0-4.6) x10^3/uL Absolute Monos (auto) (0.0-1.3) x10^3/uL Absolute Nucleated RBC (0.00-0.01) x10^3u/L Lymphocytes % (24.0-44.0) % Monocytes % (0.0-12.0) % Eosinophils % (0.00-5.0) % Basophils % (0.0-0.4) % Absolute Granulocytes (1.4-6.9) x10^3/uL Basophils # (0-0.4) x10^3/uL D-Dimer (0.0-0.50) mg/L Sodium 133 L (137-145) mmol/L Potassium 4.5 (3.5-5.1) mmol/L Chloride 97 L (98-107) mmol/L Carbon Dioxide 18 L (22-30) mmol/L Anion Gap 22.1 H (5-15) MEQ/L BUN 40 H (7-17) mg/dL Creatinine 1.44 H (0.52-1.04) mg/dL Estimated GFR 44.8 ML/MIN Glucose 85 (74-106) mg/dL Lactic Acid 1.7 (0.4-2.0) Calcium 8.9 (8.4-10.2) mg/dL Total Bilirubin (0.2-1.3) mg/dL AST (14-36) U/L ALT (0-35) U/L Alkaline Phosphatase (38-126) U/L Troponin (0.00-0.03) ng/mL Troponin I < 0.012 (0.000-0.034) ng/mL NT-Pro-B Natriuret Pep (<300) pg/mL Serum Total Protein (6.3-8.2) g/dL Albumin (3.5-5.0) g/dL Lipase (23-300) U/L Urine Color (Yellow) Urine Appearance (Clear) Urine pH (4.6-8.0) Ur Specific Neche (1.005-1.030) Urine Protein (Negative) Urine Glucose (UA) (Negative) mg/dL Urine Ketones (Negative) Urine Blood (Negative) Urine Nitrite (Negative) Urine Bilirubin (Negative) Urine Urobilinogen (0.2) mg/dL Ur Leukocyte Esterase (Negative) U Hyaline Cast (Auto) (0-2) /LPF Urine Microscopic RBC (0-5) /HPF Urine Microscopic WBC (0-5) /HPF Ur Epithelial Cells (None Seen) /HPF Urine Bacteria (None Seen) /HPF Urine Culture Reflexed (NO) Influenza Type A Ag (NEGATIVE) Influenza Type B Ag (NEGATIVE) RSV (PCR) (NEGATIVE) SARS-CoV-2 (PCR) (NEGATIVE) Slides for Path Review 04/02/23 04/02/23 04/02/23 Range/Units 04:19 08:35 08:35 WBC 9.9 (4.0-10.5) x10^3/uL RBC 5.13 (4.1-5.4) x10^6/uL Hgb 13.0 (12.0-16.0) g/dL Hct 41.8 (35-47) % MCV 81.5 (78-100) fL MCH 25.3 L (26-32) pg MCHC 31.1 L (32-36) g/dL RDW 22.9 H (11.5-14.0) % Plt Count 311 (150-450) x10^3/uL MPV 9.6 (7.5-11.0) fL Gran % 61.6 (36.0-66.0) % Immature Gran % (Auto) 0.2 (0.00-0.4) % Nucleat RBC Rel Count 0.0 (0.00-0.1) % Eos # (Auto) 0.16 (0-0.5) x10^3/uL Immature Gran # (Auto) 0.02 (0.00-0.03) x10^3u/L Absolute Lymphs (auto) 2.25 (1.0-4.6) x10^3/uL Absolute Monos (auto) 1.32 H (0.0-1.3) x10^3/uL Absolute Nucleated RBC 0.00 (0.00-0.01) x10^3u/L Lymphocytes % 22.6 L (24.0-44.0) % Monocytes % 13.3 H (0.0-12.0) % Eosinophils % 1.6 (0.00-5.0) % Basophils % 0.7 (0.0-0.4) % Absolute Granulocytes 6.12 (1.4-6.9) x10^3/uL Basophils # 0.07 (0-0.4) x10^3/uL D-Dimer (0.0-0.50) mg/L Sodium (137-145) mmol/L Potassium (3.5-5.1) mmol/L Chloride (98-107) mmol/L Carbon Dioxide (22-30) mmol/L Anion Gap (5-15) MEQ/L BUN (7-17) mg/dL Creatinine (0.52-1.04) mg/dL Estimated GFR ML/MIN Glucose (74-106) mg/dL Lactic Acid (0.4-2.0) Calcium (8.4-10.2) mg/dL Total Bilirubin (0.2-1.3) mg/dL AST (14-36) U/L ALT (0-35) U/L Alkaline Phosphatase (38-126) U/L Troponin 0.01 (0.00-0.03) ng/mL Troponin I (0.000-0.034) ng/mL NT-Pro-B Natriuret Pep (<300) pg/mL Serum Total Protein (6.3-8.2) g/dL Albumin (3.5-5.0) g/dL Lipase (23-300) U/L Urine Color (Yellow) Urine Appearance (Clear) Urine pH (4.6-8.0) Ur Specific Neche (1.005-1.030) Urine Protein (Negative) Urine Glucose (UA) (Negative) mg/dL Urine Ketones (Negative) Urine Blood (Negative) Urine Nitrite (Negative) Urine Bilirubin (Negative) Urine Urobilinogen (0.2) mg/dL Ur Leukocyte Esterase (Negative) U Hyaline Cast (Auto) (0-2) /LPF Urine Microscopic RBC (0-5) /HPF Urine Microscopic WBC (0-5) /HPF Ur Epithelial Cells (None Seen) /HPF Urine Bacteria (None Seen) /HPF Urine Culture Reflexed (NO) Influenza Type A Ag NEGATIVE (NEGATIVE) Influenza Type B Ag NEGATIVE (NEGATIVE) RSV (PCR) NEGATIVE (NEGATIVE) SARS-CoV-2 (PCR) NEGATIVE (NEGATIVE) Slides for Path Review YES Radiology Exams: Radiology Procedures Category Date Time Status ABDOMEN AND PELVIS W CONTRAST [CT] Stat Exams 04/01/23 22:44 Completed CHEST WITH CONTRAST [CT] Stat Exams 04/01/23 22:42 Completed US ABDOMEN LIMITED [ABDOMINAL-LIMITED] [US] Routine Exams 04/02/23 03:24 Completed Assessment/Plan (1) Systolic heart failure Current Visit: Yes Status: Acute Assessment & Plan: - Tele- cardiology consult - acute on chronic CHF - Continue Lasix 40 mg Q8. Continue low dose Beta andrew - EF 10% - TX to [facility] - higher level of care - pacemaker - tele - low Na+ diet Code(s): I50.20 - UNSPECIFIED SYSTOLIC (CONGESTIVE) HEART FAILURE (2) Lobar pneumonia Current Visit: Yes Status: Acute Assessment & Plan: - Chest CT 04/01/23 IMPRESSION: 1. No evidence of pulmonary thromboembolism 2. Moderate cardiomegaly with suggestion of heart strain, suggested echocardiographic correlation 3. Mild right sided pleural effusion with confluent areas of ground-glass haziness in right lower lobe, consolidations and interstitial thickening in right lung, suggestive of lobar pneumonia. 4. Few faint areas of ground-glass haziness in rest of the right lung and left upper lobe - Zosyn and azithromycin - discharged from [facility] for same dx on 03/29 and sent home with amoxicillin, azithromycin, and benzonatate - 04/02 WBC 9.9 - procal ordered for further evaluation as may be r/t CHF Code(s): J18.1 - LOBAR PNEUMONIA, UNSPECIFIED ORGANISM (3) Infective endocarditis Current Visit: Yes Status: Acute Assessment & Plan: - obtained cardiology records - Pt is scheduled for [place] tomorrow with Dr. Schwab. - Tele cardiology consulted. Code(s): I33.0 - ACUTE AND SUBACUTE INFECTIVE ENDOCARDITIS (4) Smoker Current Visit: Yes Status: Acute Assessment & Plan: - advised cessation - smokes 1/2 ppd Code(s): F17.200 - NICOTINE DEPENDENCE, UNSPECIFIED, UNCOMPLICATED (5) Nocturnal hypoxemia Current Visit: Yes Status: Acute Assessment & Plan: - wears 2 LNC at night Code(s): G47.34 - IDIO SLEEP RELATED NONOBSTRUCTIVE ALVEOLAR HYPOVENTILATION (6) Mural thrombus of left ventricle Current Visit: Yes Status: Acute Assessment & Plan: - reviewed most recent cardiology records - Eliquis 5mg PO BID Code(s): I51.3 - INTRACARDIAC THROMBOSIS, NOT ELSEWHERE CLASSIFIED (7) History of methamphetamine use Current Visit: Yes Status: Acute Assessment & Plan: - Pt explained she stopped approximately 6 weeks ago - + IV drug use Code(s): F15.91 - OTHER STIMULANT USE, UNSPECIFIED, IN REMISSION (8) Ascites Current Visit: Yes Status: Acute Assessment & Plan: - as seen on CT results - Appears improved from most recent hospital records. - Not enough fluid for paracentesis at this time. Code(s): R18.8 - OTHER ASCITES (9) Cardiomegaly Current Visit: Yes Status: Acute Assessment & Plan: - known hx - most recent echo reviewed from 02/02/23 Code(s): I51.7 - CARDIOMEGALY (10) Cholelithiasis Current Visit: Yes Status: Acute Assessment & Plan: - chronic - recently was hospitalized for uncomplicated cholelithiasis and had a cholecystostomy tube placed. She was released from a rehab facility and the tube was removed 2 days ago. - Abd US 04/02/23: Impression: 1. Cholelithiasis with wall thickening. Rule out chronic cholecystitis. 2. Hepatomegaly with tiny perihepatic fluid. (11) Hepatomegaly Current Visit: Yes Status: Acute Assessment & Plan: -chronic - continue lactulose - AST/ ALT pending today - VTE eliquis - D/C plan- tx to [facility] 1-3 days - Next of Kin: Jeremy Porter Code(s): R16.0 - HEPATOMEGALY, NOT ELSEWHERE CLASSIFIED
[2023-04-02 11:53] VITALS: BP 118/82; PULSE 88; RESP 25; TEMP 97.6; O2SAT 100
[2023-04-02 13:25] LABS: INR 1.25 (0.8-3.0); PROTIME 13.4 SECONDS (9.4-12.5)
--- NOTE | 2023-04-02 14:33 | PCM.DS ---
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 She has been treated for the endocarditis. She recently was hospitalized for uncomplicated cholelithiasis and had a cholecystostomy tube placed. She was released from a rehab facility and the tube was removed 2 days ago. She was in the rehab facilty for continue care of the tube and OP antibiotics. Pt reports she started coughing about 6 days ago with chills. She was dx'd with CAP(RLL) and started on amoxicillin/azithro by [facility] and was released on 03/29. Since starting antibxs pt has become progressively SOB. She also had noted increased abd swelling. She has been compliant with diuretics but has increased weight. In ED pt was noted to have predominantly RLL pneumonia and decompensation from HF standpoint. She was scheduled to have an OP [place] tomorrow for infective endocarditis with Dr. Schwab. Cardiology consult order placed. Order to tx to [facility] for higher level of care. Pt has volume overload with a low EJ%. Pt is a good candidate for Palliative care discussed with case management they will f/u with pt OP. - Vitals & Intake/Output Vital Signs: Vital Signs Temperature 97.6 F 04/02/23 11:51 Pulse Rate 88 04/02/23 11:51 Respiratory Rate 25 H 04/02/23 11:51 Blood Pressure 118/82 04/02/23 11:51 O2 Sat by Pulse Oximetry 100 04/02/23 11:51 Intake & Output: Intake & Output 03/31/23 04/01/23 04/02/23 04/03/23 11:59 11:59 11:59 11:59 Intake Total 240 Output Total 2400 Balance -2400 240 Weight 90.1 kg - Lab Result Diagrams: 04/02/23 04:19 04/02/23 04:19 Lab Results-Last 24 Hrs: Lab Results-Last 24 Hours 04/01/23 04/01/23 04/01/23 Range/Units 03:45 21:48 21:48 WBC 10.7 H (4.0-10.5) x10^3/uL RBC 5.16 (4.1-5.4) x10^6/uL Hgb 13.0 (12.0-16.0) g/dL Hct 42.3 (35-47) % MCV 82.0 (78-100) fL MCH 25.2 L (26-32) pg MCHC 30.7 L (32-36) g/dL RDW 22.4 H (11.5-14.0) % Plt Count 332 (150-450) x10^3/uL MPV 9.4 (7.5-11.0) fL Gran % 58.4 (36.0-66.0) % Immature Gran % (Auto) 0.5 H (0.00-0.4) % Nucleat RBC Rel Count 0.2 H (0.00-0.1) % Eos # (Auto) 0.16 (0-0.5) x10^3/uL Immature Gran # (Auto) 0.05 H (0.00-0.03) x10^3u/L Absolute Lymphs (auto) 2.72 (1.0-4.6) x10^3/uL Absolute Monos (auto) 1.43 H (0.0-1.3) x10^3/uL Absolute Nucleated RBC 0.02 H (0.00-0.01) x10^3u/L Lymphocytes % 25.5 (24.0-44.0) % Monocytes % 13.4 H (0.0-12.0) % Eosinophils % 1.5 (0.00-5.0) % Basophils % 0.7 (0.0-0.4) % Absolute Granulocytes 6.23 (1.4-6.9) x10^3/uL Basophils # 0.08 (0-0.4) x10^3/uL PT (9.4-12.5) SECONDS INR (0.8-3.0) D-Dimer (0.0-0.50) mg/L Sodium 130 L (137-145) mmol/L Potassium 5.3 H (3.5-5.1) mmol/L Chloride 97 L (98-107) mmol/L Carbon Dioxide 18 L (22-30) mmol/L Anion Gap 20.1 H (5-15) MEQ/L BUN 39 H (7-17) mg/dL Creatinine 1.34 H (0.52-1.04) mg/dL Estimated GFR 48.7 ML/MIN Glucose 102 (74-106) mg/dL Lactic Acid (0.4-2.0) Calcium 8.8 (8.4-10.2) mg/dL Total Bilirubin 1.60 H (0.2-1.3) mg/dL AST 54 H (14-36) U/L ALT 27 (0-35) U/L Alkaline Phosphatase 172 H (38-126) U/L Troponin (0.00-0.03) ng/mL Troponin I (0.000-0.034) ng/mL NT-Pro-B Natriuret Pep (<300) pg/mL Serum Total Protein 6.6 (6.3-8.2) g/dL Albumin 4.0 (3.5-5.0) g/dL Lipase 72 (23-300) U/L Urine Color Yellow (Yellow) Urine Appearance Clear (Clear) Urine pH 6.0 (4.6-8.0) Ur Specific [place] 1.020 (1.005-1.030) Urine Protein Negative (Negative) Urine Glucose (UA) Negative (Negative) mg/dL Urine Ketones Negative (Negative) Urine Blood Small A (Negative) Urine Nitrite Negative (Negative) Urine Bilirubin Negative (Negative) Urine Urobilinogen 0.2 (0.2) mg/dL Ur Leukocyte Esterase Trace A (Negative) U Hyaline Cast (Auto) 6-10 A (0-2) /LPF Urine Microscopic RBC 0-2 (0-5) /HPF Urine Microscopic WBC 3-5 (0-5) /HPF Ur Epithelial Cells Rare (None Seen) /HPF Urine Bacteria None Seen (None Seen) /HPF Urine Culture Reflexed YES (NO) Influenza Type A Ag (NEGATIVE) Influenza Type B Ag (NEGATIVE) RSV (PCR) (NEGATIVE) SARS-CoV-2 (PCR) (NEGATIVE) Slides for Path Review YES 04/01/23 04/01/23 04/01/23 Range/Units 21:48 21:48 23:00 WBC (4.0-10.5) x10^3/uL RBC (4.1-5.4) x10^6/uL Hgb (12.0-16.0) g/dL Hct (35-47) % MCV (78-100) fL MCH (26-32) pg MCHC (32-36) g/dL RDW (11.5-14.0) % Plt Count (150-450) x10^3/uL MPV (7.5-11.0) fL Gran % (36.0-66.0) % Immature Gran % (Auto) (0.00-0.4) % Nucleat RBC Rel Count (0.00-0.1) % Eos # (Auto) (0-0.5) x10^3/uL Immature Gran # (Auto) (0.00-0.03) x10^3u/L Absolute Lymphs (auto) (1.0-4.6) x10^3/uL Absolute Monos (auto) (0.0-1.3) x10^3/uL Absolute Nucleated RBC (0.00-0.01) x10^3u/L Lymphocytes % (24.0-44.0) % Monocytes % (0.0-12.0) % Eosinophils % (0.00-5.0) % Basophils % (0.0-0.4) % Absolute Granulocytes (1.4-6.9) x10^3/uL Basophils # (0-0.4) x10^3/uL PT (9.4-12.5) SECONDS INR (0.8-3.0) D-Dimer 7.37 H* (0.0-0.50) mg/L Sodium (137-145) mmol/L Potassium (3.5-5.1) mmol/L Chloride (98-107) mmol/L Carbon Dioxide (22-30) mmol/L Anion Gap (5-15) MEQ/L BUN (7-17) mg/dL Creatinine (0.52-1.04) mg/dL Estimated GFR ML/MIN Glucose (74-106) mg/dL Lactic Acid (0.4-2.0) Calcium (8.4-10.2) mg/dL Total Bilirubin (0.2-1.3) mg/dL AST (14-36) U/L ALT (0-35) U/L Alkaline Phosphatase (38-126) U/L Troponin (0.00-0.03) ng/mL Troponin I < 0.012 (0.000-0.034) ng/mL NT-Pro-B Natriuret Pep 07877 (<300) pg/mL Serum Total Protein (6.3-8.2) g/dL Albumin (3.5-5.0) g/dL Lipase (23-300) U/L Urine Color (Yellow) Urine Appearance (Clear) Urine pH (4.6-8.0) Ur Specific [place] (1.005-1.030) Urine Protein (Negative) Urine Glucose (UA) (Negative) mg/dL Urine Ketones (Negative) Urine Blood (Negative) Urine Nitrite (Negative) Urine Bilirubin (Negative) Urine Urobilinogen (0.2) mg/dL Ur Leukocyte Esterase (Negative) U Hyaline Cast (Auto) (0-2) /LPF Urine Microscopic RBC (0-5) /HPF Urine Microscopic WBC (0-5) /HPF Ur Epithelial Cells (None Seen) /HPF Urine Bacteria (None Seen) /HPF Urine Culture Reflexed (NO) Influenza Type A Ag (NEGATIVE) Influenza Type B Ag (NEGATIVE) RSV (PCR) (NEGATIVE) SARS-CoV-2 (PCR) (NEGATIVE) Slides for Path Review 04/02/23 04/02/23 04/02/23 Range/Units 04:10 04:19 04:19 WBC (4.0-10.5) x10^3/uL RBC (4.1-5.4) x10^6/uL Hgb (12.0-16.0) g/dL Hct (35-47) % MCV (78-100) fL MCH (26-32) pg MCHC (32-36) g/dL RDW (11.5-14.0) % Plt Count (150-450) x10^3/uL MPV (7.5-11.0) fL Gran % (36.0-66.0) % Immature Gran % (Auto) (0.00-0.4) % Nucleat RBC Rel Count (0.00-0.1) % Eos # (Auto) (0-0.5) x10^3/uL Immature Gran # (Auto) (0.00-0.03) x10^3u/L Absolute Lymphs (auto) (1.0-4.6) x10^3/uL Absolute Monos (auto) (0.0-1.3) x10^3/uL Absolute Nucleated RBC (0.00-0.01) x10^3u/L Lymphocytes % (24.0-44.0) % Monocytes % (0.0-12.0) % Eosinophils % (0.00-5.0) % Basophils % (0.0-0.4) % Absolute Granulocytes (1.4-6.9) x10^3/uL Basophils # (0-0.4) x10^3/uL PT (9.4-12.5) SECONDS INR (0.8-3.0) D-Dimer (0.0-0.50) mg/L Sodium 133 L (137-145) mmol/L Potassium 4.5 (3.5-5.1) mmol/L Chloride 97 L (98-107) mmol/L Carbon Dioxide 18 L (22-30) mmol/L Anion Gap 22.1 H (5-15) MEQ/L BUN 40 H (7-17) mg/dL Creatinine 1.44 H (0.52-1.04) mg/dL Estimated GFR 44.8 ML/MIN Glucose 85 (74-106) mg/dL Lactic Acid 1.7 (0.4-2.0) Calcium 8.9 (8.4-10.2) mg/dL Total Bilirubin (0.2-1.3) mg/dL AST (14-36) U/L ALT (0-35) U/L Alkaline Phosphatase (38-126) U/L Troponin (0.00-0.03) ng/mL Troponin I < 0.012 (0.000-0.034) ng/mL NT-Pro-B Natriuret Pep (<300) pg/mL Serum Total Protein (6.3-8.2) g/dL Albumin (3.5-5.0) g/dL Lipase (23-300) U/L Urine Color (Yellow) Urine Appearance (Clear) Urine pH (4.6-8.0) Ur Specific [place] (1.005-1.030) Urine Protein (Negative) Urine Glucose (UA) (Negative) mg/dL Urine Ketones (Negative) Urine Blood (Negative) Urine Nitrite (Negative) Urine Bilirubin (Negative) Urine Urobilinogen (0.2) mg/dL Ur Leukocyte Esterase (Negative) U Hyaline Cast (Auto) (0-2) /LPF Urine Microscopic RBC (0-5) /HPF Urine Microscopic WBC (0-5) /HPF Ur Epithelial Cells (None Seen) /HPF Urine Bacteria (None Seen) /HPF Urine Culture Reflexed (NO) Influenza Type A Ag (NEGATIVE) Influenza Type B Ag (NEGATIVE) RSV (PCR) (NEGATIVE) SARS-CoV-2 (PCR) (NEGATIVE) Slides for Path Review 04/02/23 04/02/23 04/02/23 Range/Units 04:19 04:30 08:35 WBC 9.9 (4.0-10.5) x10^3/uL RBC 5.13 (4.1-5.4) x10^6/uL Hgb 13.0 (12.0-16.0) g/dL Hct 41.8 (35-47) % MCV 81.5 (78-100) fL MCH 25.3 L (26-32) pg MCHC 31.1 L (32-36) g/dL RDW 22.9 H (11.5-14.0) % Plt Count 311 (150-450) x10^3/uL MPV 9.6 (7.5-11.0) fL Gran % 61.6 (36.0-66.0) % Immature Gran % (Auto) 0.2 (0.00-0.4) % Nucleat RBC Rel Count 0.0 (0.00-0.1) % Eos # (Auto) 0.16 (0-0.5) x10^3/uL Immature Gran # (Auto) 0.02 (0.00-0.03) x10^3u/L Absolute Lymphs (auto) 2.25 (1.0-4.6) x10^3/uL Absolute Monos (auto) 1.32 H (0.0-1.3) x10^3/uL Absolute Nucleated RBC 0.00 (0.00-0.01) x10^3u/L Lymphocytes % 22.6 L (24.0-44.0) % Monocytes % 13.3 H (0.0-12.0) % Eosinophils % 1.6 (0.00-5.0) % Basophils % 0.7 (0.0-0.4) % Absolute Granulocytes 6.12 (1.4-6.9) x10^3/uL Basophils # 0.07 (0-0.4) x10^3/uL PT 13.4 H (9.4-12.5) SECONDS INR 1.25 (0.8-3.0) D-Dimer (0.0-0.50) mg/L Sodium (137-145) mmol/L Potassium (3.5-5.1) mmol/L Chloride (98-107) mmol/L Carbon Dioxide (22-30) mmol/L Anion Gap (5-15) MEQ/L BUN (7-17) mg/dL Creatinine (0.52-1.04) mg/dL Estimated GFR ML/MIN Glucose (74-106) mg/dL Lactic Acid (0.4-2.0) Calcium (8.4-10.2) mg/dL Total Bilirubin (0.2-1.3) mg/dL AST (14-36) U/L ALT (0-35) U/L Alkaline Phosphatase (38-126) U/L Troponin 0.01 (0.00-0.03) ng/mL Troponin I (0.000-0.034) ng/mL NT-Pro-B Natriuret Pep (<300) pg/mL Serum Total Protein (6.3-8.2) g/dL Albumin (3.5-5.0) g/dL Lipase (23-300) U/L Urine Color (Yellow) Urine Appearance (Clear) Urine pH (4.6-8.0) Ur Specific [place] (1.005-1.030) Urine Protein (Negative) Urine Glucose (UA) (Negative) mg/dL Urine Ketones (Negative) Urine Blood (Negative) Urine Nitrite (Negative) Urine Bilirubin (Negative) Urine Urobilinogen (0.2) mg/dL Ur Leukocyte Esterase (Negative) U Hyaline Cast (Auto) (0-2) /LPF Urine Microscopic RBC (0-5) /HPF Urine Microscopic WBC (0-5) /HPF Ur Epithelial Cells (None Seen) /HPF Urine Bacteria (None Seen) /HPF Urine Culture Reflexed (NO) Influenza Type A Ag (NEGATIVE) Influenza Type B Ag (NEGATIVE) RSV (PCR) (NEGATIVE) SARS-CoV-2 (PCR) (NEGATIVE) Slides for Path Review YES 04/02/23 Range/Units 08:35 WBC (4.0-10.5) x10^3/uL RBC (4.1-5.4) x10^6/uL Hgb (12.0-16.0) g/dL Hct (35-47) % MCV (78-100) fL MCH (26-32) pg MCHC (32-36) g/dL RDW (11.5-14.0) % Plt Count (150-450) x10^3/uL MPV (7.5-11.0) fL Gran % (36.0-66.0) % Immature Gran % (Auto) (0.00-0.4) % Nucleat RBC Rel Count (0.00-0.1) % Eos # (Auto) (0-0.5) x10^3/uL Immature Gran # (Auto) (0.00-0.03) x10^3u/L Absolute Lymphs (auto) (1.0-4.6) x10^3/uL Absolute Monos (auto) (0.0-1.3) x10^3/uL Absolute Nucleated RBC (0.00-0.01) x10^3u/L Lymphocytes % (24.0-44.0) % Monocytes % (0.0-12.0) % Eosinophils % (0.00-5.0) % Basophils % (0.0-0.4) % Absolute Granulocytes (1.4-6.9) x10^3/uL Basophils # (0-0.4) x10^3/uL PT (9.4-12.5) SECONDS INR (0.8-3.0) D-Dimer (0.0-0.50) mg/L Sodium (137-145) mmol/L Potassium (3.5-5.1) mmol/L Chloride (98-107) mmol/L Carbon Dioxide (22-30) mmol/L Anion Gap (5-15) MEQ/L BUN (7-17) mg/dL Creatinine (0.52-1.04) mg/dL Estimated GFR ML/MIN Glucose (74-106) mg/dL Lactic Acid (0.4-2.0) Calcium (8.4-10.2) mg/dL Total Bilirubin (0.2-1.3) mg/dL AST (14-36) U/L ALT (0-35) U/L Alkaline Phosphatase (38-126) U/L Troponin (0.00-0.03) ng/mL Troponin I (0.000-0.034) ng/mL NT-Pro-B Natriuret Pep (<300) pg/mL Serum Total Protein (6.3-8.2) g/dL Albumin (3.5-5.0) g/dL Lipase (23-300) U/L Urine Color (Yellow) Urine Appearance (Clear) Urine pH (4.6-8.0) Ur Specific [place] (1.005-1.030) Urine Protein (Negative) Urine Glucose (UA) (Negative) mg/dL Urine Ketones (Negative) Urine Blood (Negative) Urine Nitrite (Negative) Urine Bilirubin (Negative) Urine Urobilinogen (0.2) mg/dL Ur Leukocyte Esterase (Negative) U Hyaline Cast (Auto) (0-2) /LPF Urine Microscopic RBC (0-5) /HPF Urine Microscopic WBC (0-5) /HPF Ur Epithelial Cells (None Seen) /HPF Urine Bacteria (None Seen) /HPF Urine Culture Reflexed (NO) Influenza Type A Ag NEGATIVE (NEGATIVE) Influenza Type B Ag NEGATIVE (NEGATIVE) RSV (PCR) NEGATIVE (NEGATIVE) SARS-CoV-2 (PCR) NEGATIVE (NEGATIVE) Slides for Path Review - Radiology Exams Ordered Rad Exams-Entire Visit: Radiology Procedures Category Date Time Status ABDOMEN AND PELVIS W CONTRAST [CT] Stat Exams 04/01/23 22:44 Completed CHEST WITH CONTRAST [CT] Stat Exams 04/01/23 22:42 Completed US ABDOMEN LIMITED [ABDOMINAL-LIMITED] [US] Routine Exams 04/02/23 03:24 Completed - Procedures and Test Procedures and Tests throughout Hospitalization: Therapy Orders & Screens 04/02/23 04:02 Oxygen Nasal Cannula 2 lpm Comment: Diagnosis: Lobar pneumonia, fluid overload, congestive heart failure, Respiratory Therapy Assessment DAILY Comment: Diagnosis: Lobar pneumonia, fluid overload, congestive heart failure, 04/02/23 04:03 Respiratory MDI BID Comment: Diagnosis: Lobar pneumonia, fluid overload, congestive heart failure, 04/02/23 12:21 Respiratory Therapy Consult ROUTINE Comment: Reason For Exam: shortness of breath Diagnosis: Lobar pneumonia, fluid overload, congestive heart failure, Discharge Exam General Appearance: no apparent distress, mild distress, alert Neurologic Exam: alert, oriented x 3, cooperative, normal mood/affect, nml cerebellar function, sensation nml, No motor deficits Eye Exam: PERRL, EOMI, eyes nml inspection Ears, Nose, Throat Exam: normal ENT inspection, pharynx normal, moist mucous membranes Neck Exam: normal inspection, non-tender, supple, full range of motion Respiratory Exam: diminished breath sounds (left lower lobe), No respiratory distress Cardiovascular Exam: regular rate/rhythm, murmur Gastrointestinal/Abdomen Exam: soft, tenderness (LUQ and RUQ with palpation), distention, hepatomegaly, No mass Pelvic Exam: deferred Rectal Exam: deferred Back Exam: normal inspection, normal range of motion, No CVA tenderness, No vertebral tenderness Extremity Exam: normal inspection, normal range of motion Skin Exam: normal color, warm, dry Final Diagnosis/Problem List - Final Discharge Diagnosis/Problem (1) Systolic heart failure Current Visit: Yes Status: Acute Code(s): I50.20 - UNSPECIFIED SYSTOLIC (CONGESTIVE) HEART FAILURE (2) Lobar pneumonia Current Visit: Yes Status: Acute Code(s): J18.1 - LOBAR PNEUMONIA, UNSPECIFIED ORGANISM (3) Infective endocarditis Current Visit: Yes Status: Acute Code(s): I33.0 - ACUTE AND SUBACUTE INFECTIVE ENDOCARDITIS (4) Smoker Current Visit: Yes Status: Acute Code(s): F17.200 - NICOTINE DEPENDENCE, UNSPECIFIED, UNCOMPLICATED (5) Nocturnal hypoxemia Current Visit: Yes Status: Acute Code(s): G47.34 - IDIO SLEEP RELATED NONOBSTRUCTIVE ALVEOLAR HYPOVENTILATION (6) Mural thrombus of left ventricle Current Visit: Yes Status: Acute Code(s): I51.3 - INTRACARDIAC THROMBOSIS, NOT ELSEWHERE CLASSIFIED (7) History of methamphetamine use Current Visit: Yes Status: Acute Code(s): F15.91 - OTHER STIMULANT USE, UNSPECIFIED, IN REMISSION (8) Ascites Current Visit: Yes Status: Acute Code(s): R18.8 - OTHER ASCITES (9) Cardiomegaly Current Visit: Yes Status: Acute Code(s): I51.7 - CARDIOMEGALY (10) Cholelithiasis Current Visit: Yes Status: Acute (11) Hepatomegaly Current Visit: Yes Status: Acute Assessment & Plan: Assessment/Plan (1) Systolic heart failure Current Visit: Yes Status: Acute Assessment & Plan: - Tele- cardiology consult - acute on chronic CHF - Continue Lasix 40 mg Q8. Continue low dose Beta andrew - EF 10% - TX to [place] - higher level of care - pacemaker - tele - low Na+ diet Code(s): I50.20 - UNSPECIFIED SYSTOLIC (CONGESTIVE) HEART FAILURE (2) Lobar pneumonia Current Visit: Yes Status: Acute Assessment & Plan: - Chest CT 04/01/23 IMPRESSION: 1. No evidence of pulmonary thromboembolism 2. Moderate cardiomegaly with suggestion of heart strain, suggested echocardiographic correlation 3. Mild right sided pleural effusion with confluent areas of ground-glass haziness in right lower lobe, consolidations and interstitial thickening in right lung, suggestive of lobar pneumonia. 4. Few faint areas of ground-glass haziness in rest of the right lung and left upper lobe - Zosyn and azithromycin - discharged from [facility] for same dx on 03/29 and sent home with amoxicillin, azithromycin, and benzonatate - 04/02 WBC 9.9 - procal ordered for further evaluation as may be r/t CHF Code(s): J18.1 - LOBAR PNEUMONIA, UNSPECIFIED ORGANISM (3) Infective endocarditis Current Visit: Yes Status: Acute Assessment & Plan: - hx per cardiology records - obtained cardiology records - Pt is scheduled for [place] tomorrow with Dr. Schwab. - Tele cardiology consulted. Code(s): I33.0 - ACUTE AND SUBACUTE INFECTIVE ENDOCARDITIS (4) Smoker Current Visit: Yes Status: Acute Assessment & Plan: - advised cessation - smokes 1/2 ppd Code(s): F17.200 - NICOTINE DEPENDENCE, UNSPECIFIED, UNCOMPLICATED (5) Nocturnal hypoxemia Current Visit: Yes Status: Acute Assessment & Plan: - wears 2 LNC at night Code(s): G47.34 - IDIO SLEEP RELATED NONOBSTRUCTIVE ALVEOLAR HYPOVENTILATION (6) Mural thrombus of left ventricle Current Visit: Yes Status: Acute Assessment & Plan: - reviewed most recent cardiology records - Eliquis 5mg PO BID Code(s): I51.3 - INTRACARDIAC THROMBOSIS, NOT ELSEWHERE CLASSIFIED (7) History of methamphetamine use Current Visit: Yes Status: Acute Assessment & Plan: - Pt explained she stopped approximately 6 weeks ago - + IV drug use Code(s): F15.91 - OTHER STIMULANT USE, UNSPECIFIED, IN REMISSION (8) Ascites Current Visit: Yes Status: Acute Assessment & Plan: - as seen on CT results - Appears improved from most recent hospital records. - Not enough fluid for paracentesis at this time. Code(s): R18.8 - OTHER ASCITES (9) Cardiomegaly Current Visit: Yes Status: Acute Assessment & Plan: - known hx - most recent echo reviewed from 02/02/23 Code(s): I51.7 - CARDIOMEGALY (10) Cholelithiasis Current Visit: Yes Status: Acute Assessment & Plan: - chronic - recently was hospitalized for uncomplicated cholelithiasis and had a cholecystostomy tube placed. She was released from a rehab facility and the tube was removed 2 days ago. - Abd US 04/02/23: Impression: 1. Cholelithiasis with wall thickening. Rule out chronic cholecystitis. 2. Hepatomegaly with tiny perihepatic fluid. (11) Hepatomegaly Current Visit: Yes Status: Acute Assessment & Plan: -chronic - continue lactulose - AST/ ALT pending today TX to [facility] Code(s): R16.0 - HEPATOMEGALY, NOT ELSEWHERE CLASSIFIED - Discharge Discharge Date: 04/02/23 Disposition: DC TO [facility] Condition: Stable Prescriptions: Continue Acetaminophen 325 mg [Tylenol 325 mg] 650 mg PO QID Albuterol Sulfate [Albuterol Sulfate Hfa] 2 puff IH Q4HPRN PRN PRN Reason: Shortness Of Breath Alprazolam [Xanax] 1 mg PO BID Amoxicillin 500 mg PO TID Apixaban [Eliquis] 5 mg PO BID Azithromycin [Azithromycin 250 mg Pack] 250 mg PO DAILY Benzonatate 200 mg PO TID Buspirone HCl 7.5 mg PO BID Carvedilol 3.125 mg [Coreg 3.125 MG] 3.125 mg PO BID Melatonin 6 mg PO HS Potassium Chloride 40 meq PO BID Torsemide 20 mg [Demadex 20 mg] 40 mg PO BID Lactulose 45 ml PO Q8H Fluticasone/Umeclidin/Vilanter [Trelegy Ellipta 100-62.5-25] 1 puff IH DAILY Additional Instructions: [facility] WAS SENT. THEY WILL CONTACT YOU TO ARRANGE A TIME TO COME SEE YOU TO ASSIST IN MANAGING YOUR HEALTH. THEIR PHONE NUMBER IS [phone] IF YOU SHOULD NEED ANYTHING BEFORE THEIR FIRST VISIT Follow up with: SAMSON WELCH MD [Primary Care Provider] -
[2023-04-02 14:41] LABS: PROCALCITONIN 0.397 ng/mL (0.030-0.080)
[2023-04-02] MEDS ORDERED: MELATONIN PO SCH (22:00)
[2023-04-02] MEDS ORDERED: Klor Con PO SCH (22:00)
== END 2023-04-02 15:29 | disposition home or self-care (01) ==
LOC: ED 21:03 → MED SURG 04-02 01:55
PROVIDERS: ADMIT Internal Medicine Critical Care Medicine; ATTEND Internal Medicine Critical Care Medicine
DX: I50.20 Unspecified systolic (congestive) heart failure (principal); J18.1 Lobar pneumonia, unspecified organism; I33.0 Acute and subacute infective endocarditis; F17.200 Nicotine dependence, unspecified, uncomplicated; G47.34 Idiopathic sleep related nonobstructive alveolar hypoventilation; I51.3 Intracardiac thrombosis, not elsewhere classified; F15.91 Other stimulant use, unspecified, in remission; R18.8 Other ascites; I51.7 Cardiomegaly; K80.20 Calculus of gallbladder without cholecystitis without obstruction; R16.0 Hepatomegaly, not elsewhere classified; E11.22 Type 2 diabetes mellitus with diabetic chronic kidney disease; N18.30 Chronic kidney disease, stage 3 unspecified; Z79.01 Long term (current) use of anticoagulants; Z20.828 Contact with and (suspected) exposure to other viral communicable diseases; Z79.899 Other long term (current) drug therapy
CPT/HCPCS: 0241U; 36000; 36415; 71260; 74177; 76705; 80048; 80053; 81001; 83605; 83690; 83880; 84145; 84450; 84484; 85025; 85379; 85610; 87070; 87086; 93005; 93041; 93268; 94640; 94760; 94762; 96374; 96375; 99285; G0378; J1940; J2270; J2405; A9270-GY

== ENCOUNTER 2023-04-16 08:03 | Emergency (ER) | payer MEDICAID ==
[2023-04-16] MEDS ORDERED: Zofran 4 MG/2 ML VIAL IV ONE ×2 (08:18→11:46)
[2023-04-16] MEDS ORDERED: MORPHINE SULFATE 4 MG INJ IV ONE ×2 (08:18→11:00)
[2023-04-16] MEDS ORDERED: Zofran 4 MG/2 ML VIAL ONE (08:29)
[2023-04-16] MEDS ORDERED: MORPHINE SULFATE 4 MG INJ ONE ×2 (08:29→10:58)
[2023-04-16 09:02] LABS: Absolute Neutrophil Ct (ANC) 4.67 x10^3/uL (1.4-6.9); BASOPHIL % 1.4 % (0.0-0.4); Basophil (Absolute #) 0.11 x10^3/uL (0-0.4); Eosinophil % 0.6 % (0.00-5.0); Eosinophil (Absolute #) 0.05 x10^3/uL (0-0.5); Hematocrit 42.4 % (35-47); Hemoglobin 13.1 g/dL (12.0-16.0); IMMATURE GRAN # 0.03 x10^3u/L (0.00-0.03); IMMATURE GRAN % 0.4 % (0.00-0.4); Lymphocyte (Absolute #) 2.03 x10^3/uL (1.0-4.6); Lymphocytes % 25.2 % (24.0-44.0); Mean Cell Volume 82.3 fL (78-100); Mean Corpuscular Hemoglobin 25.4 pg (26-32); Mean Corpuscular Hgb Concent. 30.9 g/dL (32-36); Mean Platelet Volume 9.5 fL (7.5-11.0); Monocyte (Absolute #) 1.16 x10^3/uL (0.0-1.3); Monocytes % 14.4 % (0.0-12.0); Platelet Count 281 x10^3/uL (150-450); Red Blood Count 5.15 x10^6/uL (4.1-5.4); Red Cell Distribution Width 22.5 % (11.5-14.0); White Blood Count 8.1 x10^3/uL (4.0-10.5)
[2023-04-16 09:14] LABS: HCG SERUM TEST NEGATIVE (NEGATIVE)
[2023-04-16 10:19] LABS: ALBUMIN 3.7 g/dL (3.5-5.0); ANION GAP 21.6 MEQ/L (5-15); BILIRUBIN,TOTAL 1.7 mg/dL (0.2-1.3); Calcium 8.7 mg/dL (8.4-10.2); Creatinine 1 1.68 mg/dL (0.52-1.04); EST GLOMERULAR FILTRATION RATE 37.5 ML/MIN; MAGNESIUM 2.1 mg/dL (1.6-2.3); Potassium 5.2 mmol/L (3.5-5.1); Total Protein 6.2 g/dL (6.3-8.2)
--- NOTE | 2023-04-16 10:22 | XRAY ---
Indication: Chest pain and short of breath. Multiple contiguous axial images obtained through the chest without contrast. Comparison: April 01, 2023 Lungs demonstrates progressive worsening diffuse right lung consolidating/nonconsolidating airspace disease and increasing moderate effusion. Stable minimal left base subsegmental atelectasis/scarring and cardiomegaly with left AICD. Aorta is normal in course and caliber. Bony thorax intact. CT abdomen/pelvis reported separately. Impression: Worsening diffuse right lung consolidating/nonconsolidating airspace disease and increasing moderate right effusion. Stable cardiomegaly with left AICD.
--- NOTE | 2023-04-16 10:28 | XRAY ---
Indication: Abdomen pain, fatigue, and bodyache. Multiple contiguous axial images obtained through the abdomen and pelvis without contrast. Comparison: April 01, 2023 CT chest reported separately. Worsening diffuse anasarca and worsening mild abdominal/pelvic ascites.. Noncontrasted stomach and bowel loops are nonobstructed. Again mildly distended gallbladder with a few small calculi in the dependent portion. Stable 21 cm fatty hepatomegaly. No free air. Remaining pancreas, spleen, adrenal glands, kidneys, ureters, bladder, and uterus are unremarkable for noncontrast exam. Stable small periaortic lymph nodes. Osseous structures intact. Impression: 1. Worsening diffuse anasarca and worsening mild abdominal/pelvic ascites. 2. Again mild distended gallbladder with small stones and fatty hepatomegaly. 3. No new/acute intra-abdominal/pelvic abnormalities on this noncontrast exam.
[2023-04-16 10:35] LABS: INFLUENZA A NEGATIVE (NEGATIVE); INFLUENZA B NEGATIVE (NEGATIVE); RESPIRATORY SYNCTIAL VIRUS NEGATIVE (NEGATIVE); SARS-CoV-2 Xpert Express NEGATIVE (NEGATIVE)
[2023-04-16] MEDS ORDERED: Zithromax 500 MG/ 250 ML NaCl Premix 500 MG/250 ML IVPB IV ONE ×2 (10:35→10:48)
[2023-04-16 10:43] LABS: Slide Review 1 YES
[2023-04-16] MEDS ORDERED: AZACTAM 1 GM*** 2 GM in Sodium Chloride 0.9% 100 ML IV ONE (10:56)
[2023-04-16] MEDS ORDERED: NARCAN 2 MG/2 ML IV ONE (11:26)
[2023-04-16] MEDS ORDERED: EPINEPHRINE ABBOJECT 1 MG/10 ML IV ONE ×3 (11:30→11:38)
[2023-04-16] MEDS ORDERED: D5W IV ONE (11:35)
[2023-04-16] MEDS ORDERED: Sodium Chloride 0.9% 1000 ML 1,000 ML IV ONE (11:35)
[2023-04-16] MEDS ORDERED: NOREPINEPHRINE 8 MG/250 ML IV ONE (11:35)
[2023-04-16] MEDS ORDERED: SODIUM BICARBONATE 50 MEQ/50 ML ABBOJECT IV ONE ×3 (11:36→14:00)
[2023-04-16] MEDS ORDERED: CALCIUM CHLORIDE 10% 1000 MG IJ ONE (11:38)
[2023-04-16] MEDS ORDERED: Versed 2 MG/2 ML Injection IV ONE (11:45)
--- NOTE | 2023-04-16 12:04 | XRAY ---
Indication: Tube placement. Comparison: CT chest performed earlier in the day. Portable chest demonstrates endotracheal tube tip approximately 6.5 cm above francis. Elsewhere CT proven cardiomegaly, diffuse right lung airspace disease, large right effusion, and minimal left mid lung atelectasis/scarring.
[2023-04-16 12:16] LABS: Absolute Neutrophil Ct (ANC) 5.56 x10^3/uL (1.4-6.9); BASOPHIL % 0.9 % (0.0-0.4); Eosinophil % 0.3 % (0.00-5.0); Eosinophil (Absolute #) 0.03 x10^3/uL (0-0.5); Hematocrit 44.1 % (35-47); Hemoglobin 12.9 g/dL (12.0-16.0); IMMATURE GRAN # 0.48 x10^3u/L (0.00-0.03); IMMATURE GRAN % 4.4 % (0.00-0.4); Lymphocyte (Absolute #) 3.71 x10^3/uL (1.0-4.6); Mean Cell Volume 86.3 fL (78-100); Mean Corpuscular Hemoglobin 25.2 pg (26-32); Mean Corpuscular Hgb Concent. 29.3 g/dL (32-36); Mean Platelet Volume 9.6 fL (7.5-11.0); Monocyte (Absolute #) 1.02 x10^3/uL (0.0-1.3); Monocytes % 9.4 % (0.0-12.0); NUCLEATED RBC # 0.13 x10^3u/L (0.00-0.01); NUCLEATED RBC % 1.2 % (0.00-0.1); Platelet Count 238 x10^3/uL (150-450); Red Blood Count 5.11 x10^6/uL (4.1-5.4); Red Cell Distribution Width 22.6 % (11.5-14.0); White Blood Count 10.9 x10^3/uL (4.0-10.5)
[2023-04-16] MEDS ORDERED: Versed 50 MG/ 10 Ml MDV*** 50 MG in Sodium Chloride 0.9% 250 ML 240 ML IV PRN (12:17)
--- NOTE | 2023-04-16 12:26 | XRAY ---
Indication: Orogastric tube placement. Comparison: Taken earlier in the day. Portable chest demonstrates new orogastric tube traversing chest with distal tube in left upper quadrant abdomen, presumed stomach. Endotracheal tube tip remains 6.5 cm above francis. Remaining cardiopulmonary abnormalities unchanged.
[2023-04-16 12:28] LABS: ALBUMIN 3.2 g/dL (3.5-5.0); ANION GAP 28.4 MEQ/L (5-15); BILIRUBIN,TOTAL 1.5 mg/dL (0.2-1.3); Calcium 9.9 mg/dL (8.4-10.2); Creatinine 1 1.74 mg/dL (0.52-1.04); Potassium 5.9 mmol/L (3.5-5.1); Total Protein 5.7 g/dL (6.3-8.2)
--- NOTE | 2023-04-16 12:28 | XRAY ---
Indication: Orogastric tube placement. Portable KUB nonacute and nonobstructed. Tip orogastric tube in antral portion stomach. Mooney catheter tip seen floor of pelvis, presumed bladder. Osseous structures intact.
[2023-04-16 12:29] LABS: INR 1.72 (0.8-3.0); PTT 32.8 SECONDS (25.1-36.5)
[2023-04-16 12:42] VITALS: TEMP 97.3
[2023-04-16 12:54] LABS: A-aADO2 411; ABG HEMOGLOBIN 13.5; ARTERIAL BLD GAS O2 SATURATION 99.5 % (95-100); ARTERIAL BLD GAS TIDAL VOLUME 500 cc; ARTERIAL BLOOD GAS BASE EXCESS -19.5 (-2.0-2.0); ARTERIAL BLOOD GAS FIO2 100 %; ARTERIAL BLOOD GAS PCO2 30 mmHg (35-45); ARTERIAL BLOOD GAS PO2 265 mmHg (75-100); ARTERIAL BLOOD GAS VENT MODE A/C; CARBOXYHEMOGLOBIN 1.8 % THgb (0.0-6.9); HCO3- 9.1 (22-28); HGB O2 SAT 96.9 g/dF (94-100); Methhemoglobin 0.8 % (1.4-1.5); paO2 pAO1 0.39
[2023-04-16 12:55] LABS: ABG POTASSIUM 6.1 (3.5-5.1); ARTERIAL BLOOD GAS pH 7.09 (7.35-7.45)
[2023-04-16 12:56] LABS: ABG SITE RIGHT FEMORAL
[2023-04-16 12:56] LABS: VBG HEMOGLOBIN 12.2; VBG O2 SATURATION 51.5 (95-100); VBG PCO2 125 mm/Hg (42-55); VBG PO2 36 mm/Hg (25-40); VBG POTASSIUM 4.2 (3.5-5.1)
[2023-04-16] MEDS ORDERED: Ketamine HCl 50 MG/ML IV ONE (13:10)
--- NOTE | 2023-04-16 13:19 | ERPHSYRPT ---
- History of Present Illness Time Seen by Provider: 04/16/23 08:15 Source: patient Exam Limitations: no limitations Patient Subjective Stated Complaint: C/O cough, SOB, body aches "pain all over". Patient states to nurses this has been for the past week but then stated to doc that it has been for the past 3 days. Patient changed main complaint once Dr. Dwyer entered her room to abdominal pain. Triage Nursing Assessment: Patient came back to ER by W/C. She is alert and oriented but very anxious. Patient hyperventilating at times; patient instructed to slow her breathing. She has a dry, non-productive cough. Bilateral upper lung mcadams clear. Difficulty assessed lower lungs due to patient's anxiety and inability to deep breath at this time. LESLIE NOYOLA. 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 Patient also reports having upper abdominal pain moderate intensity without any significant aggravating or relieving factors and denies associated nausea vomiting or d iarrhea. Patient reports generalized chest pain more on the right lower side. Subjective feeling of fever and chills. Allergies/Adverse Reactions: cephalexin [From Keflex] Allergy (Verified 04/16/23 08:05) Home Medications: Alprazolam [Xanax] 1 mg PO BID PRN 04/01/23 [History] Apixaban [Eliquis] 5 mg PO BID 04/01/23 [History] Buspirone HCl 7.5 mg PO BID 04/01/23 [History] Carvedilol 3.125 mg [Coreg 3.125 MG] 3.125 mg PO BID 04/01/23 [History] Lactulose 45 ml PO Q8H 04/01/23 [History] Melatonin 6 mg PO HS 04/01/23 [History] Potassium Chloride 1 tab PO BID 04/01/23 [History] Acetaminophen 325 mg [Tylenol 325 mg] 2 tab PO Q4H PRN PRN 04/16/23 [History] Albuterol Sulfate [Albuterol Sulfate Hfa] 2 puff PO Q6H PRN PRN 04/16/23 [History] Albuterol/Ipratropium 3ml Neb* [DUONEB 0.5-3 MG/3 ml Neb] 1 vial NEBULIZE QID PRN 04/16/23 [History] Fluticasone/Salmeterol 115/21 [Advair Hfa 115/21 Common canister*] 2 puff PO BID 04/16/23 [History] Ondansetron ODT 4 MG [Zofran Odt 4 mg] 1 tab PO Q8H PRN PRN 04/16/23 [History] Umeclidinium Brm/Vilanterol Tr [Anoro Ellipta 62.5-25 Mcg INH] 1 puff PO DAILY 04/16/23 [History] Hx Tetanus, Diphtheria Vaccination/Date Given: Yes Hx Influenza Vaccination/Date Given: Yes Hx Pneumococcal Vaccination/Date Given: Yes Immunizations Up to Date: Yes Travel Risk - International Travel Have you traveled outside of the country in past 3 weeks: No - Coronavirus Screening Are you exhibiting any of the following symptoms?: Yes Symptoms: Cough: New Onset, Shortness of Breath, Headaches/Body Aches/Fatigue Close contact with a COVID-19 positive Pt in past 14-21 Days: No - Vaccine Status Have you recieved a Covid-19 vaccination: No - Review of Systems Constitutional: Fever, Chills, Fatigue, Weakness Eyes: No Symptoms Ears, Nose, & Throat: No Symptoms Respiratory: Cough, Dyspnea, Dyspnea on Exertion (DIAZ), Wheezing Cardiac: Chest Pain, Edema Abdominal/Gastrointestinal: Abdominal Pain Genitourinary Symptoms: No Symptoms Musculoskeletal: Arthralgias Skin: No Symptoms Neurological: No Symptoms Immunological/Allergic: No Symptoms - Past Medical History Pertinent Past Medical History: Yes Neurological History: No Pertinent History ENT History: No Pertinent History Cardiac History: Arrhythmia, Congestive Heart Failure, Hypertension, Myocardial Infarction ([place]), Other Respiratory History: Asthma, CHF, COPD, Pneumonia Endocrine Medical History: Diabetes Type II, Liver Disease Musculoskeletal History: No Pertinent History GI Medical History: Gallbladder Disease History: Renal Disease Psycho-Social History: Anxiety Female Reproductive Disorders: No Pertinent History Other Medical History: blood clot in heart, stage III kidney disease, endocarditis, HFrEF (heart failure with reduced ejection fraction), hyponatremia, labral tear of long head of right biceps tendon, LV (left ve ntricular) mural thrombus, Rotator cuff syndrome of right shoulder, pericardial effusion, history of IV drug abuse - Past Surgical History Past Surgical History: Yes Neuro Surgical History: No Pertinent History Cardiac: Cardiac Catheterization, Internal Defibrillator, Pacemaker Respiratory: No Pertinent History Gastrointestinal: Other Genitourinary: No Pertinent History Musculoskeletal: No Pertinent History Female Surgical History: Section Other Surgical History: x2, teeth removal, drain in gallbladder and removed, thoracenteseis x2; [place] - Social History Smoking Status: Former smoker How long have you smoked: 21 years Exposure to second hand smoke: Yes Drug Use: none Patient Lives Alone: No - Female History Hx Now: (unkn) - Nursing Vital Signs Nursing Vital Signs: Initial Vital Signs Temperature 96.5 F 04/16/23 08:04 Pulse Rate 96 H 04/16/23 08:04 Respiratory Rate 22 04/16/23 08:04 Blood Pressure 129/97 04/16/23 08:04 O2 Sat by Pulse Oximetry 98 04/16/23 08:04 Pain Scale Pain Intensity 0 - Physical Exam General Appearance: no apparent distress, alert, anxiety Eye Exam: PERRL/EOMI, eyes nml inspection Ears, Nose, Throat Exam: hearing grossly normal, normal ENT inspection, normal pharynx Neck Exam: normal inspection, non-tender, supple, full range of motion Respiratory Exam: diminished breath sounds, crackles/rales, rhonchi Cardiovascular/Chest Exam: normal heart sounds, regular rate/rhythm Abdominal/Gastrointestinal Exam: soft, normal bowel sounds, tenderness (Upper abdomen) Extremity Exam: non-tender, normal range of motion Neurologic Exam: alert, oriented x 3, cooperative, knockdown worker II-XII nml as tested, No normal mood/affect Skin Exam: normal color SpO2 Interpretation: normal SpO2: 99 O2 Delivery: Room Air Procedures - Intubation Intubation Indications: cardiac arrest, respiratory arrest, airway protection Intubation Method: glidescope Tube Size (cm): 7.5 Endotracheal Tube Confirmation: bilateral breath sounds, positive end tidal CO2, good rise & fall of chest, stable or inc of O2 sat Intubation Complications: no complications Performed By: ED Physician Post Intubation Xray: Yes Progress/X-ray Impression: 04/16/23 13:[address] - Course EKG Interpreted by Me: RATE (96), NORMAL AXIS, Q-wave, Other (Second EKG time 1149. Rate 112, sinus tach, normal axis, prolonged NM interval, Q waves present, T wave inversion in V6, nonspecific intra ventricular conduction delay) Ordered Tests: Active Orders 24 hr Category Date Time Status EKG-ER Only STAT Care 04/16/23 08:18 Completed IV Insertion STAT Care 04/16/23 08:18 Completed NPO (ED) STAT Care 04/16/23 08:18 Completed ABDOMEN AND PELVIS W/0 CONTRAS [CT] Stat Exams 04/16/23 08:19 Completed CHEST 1 VIEW (PORTABLE) Stat Exams 04/16/23 11:52 Completed CHEST 1 VIEW (PORTABLE) Stat Exams 04/16/23 12:03 Completed CHEST WITHOUT CONTRAST [CT] Stat Exams 04/16/23 08:20 Completed KUB Stat Exams 04/16/23 12:03 Completed ABG [ARTERIAL BLOOD GASES] Stat Lab 04/16/23 13:41 Completed ABG [ARTERIAL BLOOD GASES] Stat Lab 04/16/23 14:01 Completed ABG [ARTERIAL BLOOD GASES] Urgent Lab 04/16/23 12:30 Completed BLOOD CULTURE Stat Lab 04/16/23 08:19 Received CBC W DIFF Stat Lab 04/16/23 08:20 Completed CBC W DIFF Stat Lab 04/16/23 11:37 Completed CMP Stat Lab 04/16/23 08:20 Completed CMP Stat Lab 04/16/23 11:37 Completed Glucose,Critical Care Stat Lab 04/16/23 14:03 Completed HCG QUALITATIVE, SERUM Stat Lab 04/16/23 08:20 Completed LIPASE Stat Lab 04/16/23 08:20 Completed Lactic Acid Stat Lab 04/16/23 08:20 Completed Lactic Acid Stat Lab 04/16/23 10:25 Completed MAGNESIUM Stat Lab 04/16/23 08:20 Completed NT PRO BNPII Stat Lab 04/16/23 08:20 Completed PROTIME WITH INR Stat Lab 04/16/23 11:37 Completed PTT Stat Lab 04/16/23 11:37 Completed TROPONIN Q4H Lab 04/16/23 08:20 Completed TROPONIN Q4H Lab 04/16/23 10:54 Completed VBG [VENOUS BLOOD GAS] Stat Lab 04/16/23 12:15 Results Intubate Patient STAT RT 04/16/23 13:02 Completed Standby STAT RT 04/16/23 12:59 Completed Ventilator Management STAT RT 04/16/23 12:59 Completed Medication Summary Discontinued Medications Generic Name Dose Route Start Last Admin Trade Name Leslie PRN Reason Stop Dose Admin Calcium Chloride Confirm 04/16/23 14:02 Calcium Chloride 100 Mg/Ml 10ml Inj. Administered 04/16/23 14:03 Dose 1,000 mg .ROUTE .STK-MED ONE Azithromycin 500 mg in 250 mls @ 250 mls/hr 04/16/23 10:35 04/16/23 10:49 Zithromax 500 Mg/ 250 Ml Nacl Premix IV 04/16/23 11:34 250 mls/hr STAT ONE Administration Azithromycin Confirm 04/16/23 10:48 Zithromax 500 Mg/ 250 Ml Nacl Premix Administered 04/16/23 10:49 Dose 500 mg in 250 mls @ ud IV .STK-MED ONE Aztreonam 2 gm/ Sodium 100 mls @ 200 mls/hr 04/16/23 10:56 Chloride IV 04/16/23 11:25 STAT ONE Midazolam HCl 50 mg/ Sodium 250 mls @ 11.988 mls/hr 04/16/23 12:17 Chloride IV 05/16/23 12:16 .[id number] PRN SEDATION Protocol 0.025 MG/KG/HR Meropenem 1 gm/ Sodium 100 mls @ 200 mls/hr 04/16/23 13:29 04/16/23 15:42 Chloride IV 04/16/23 13:58 Not Given STAT ONE Dextrose Confirm 04/16/23 13:46 Dextrose 5%/Water Iv Soln. 250 Ml Administered 04/16/23 13:47 Dose 250 mls @ ud IV .STK-MED ONE Morphine Sulfate 4 mg 04/16/23 08:18 04/16/23 08:30 Morphine Sulfate 4 Mg/Ml Injection IV 04/16/23 08:19 4 mg STAT ONE Administration Morphine Sulfate Confirm 04/16/23 08:29 Morphine Sulfate 4 Mg/Ml Injection Administered 04/16/23 08:30 Dose 4 mg .ROUTE .STK-MED ONE Morphine Sulfate Confirm 04/16/23 10:58 Morphine Sulfate 4 Mg/Ml Injection Administered 04/16/23 10:59 Dose 4 mg .ROUTE .STK-MED ONE Morphine Sulfate 4 mg 04/16/23 11:00 04/16/23 11:00 Morphine Sulfate 4 Mg/Ml Injection IV 04/16/23 11:01 4 mg STAT ONE Administration Ondansetron HCl 4 mg 04/16/23 08:18 04/16/23 08:30 Ondansetron Hcl 4 Mg/2 Ml Vial IV 04/16/23 08:19 4 mg STAT ONE Administration Ondansetron HCl Confirm 04/16/23 08:29 Ondansetron Hcl 4 Mg/2 Ml Vial Administered 04/16/23 08:30 Dose 4 mg .ROUTE .STK-MED ONE Phenylephrine HCl Confirm 04/16/23 13:46 Phenylephrine 10 Mg/Ml Vial Administered 04/16/23 13:47 Dose 10 mg .ROUTE .STK-MED ONE Lab/Rad Data: Laboratory Result Diagrams 04/16/23 11:37 04/16/23 11:37 Laboratory Results 04/16/23 04/16/23 04/16/23 Range/Units 14:03 14:01 13:41 WBC (4.0-10.5) x10^3/uL RBC (4.1-5.4) x10^6/uL Hgb (12.0-16.0) g/dL Hct (35-47) % MCV (78-100) fL MCH (26-32) pg MCHC (32-36) g/dL RDW (11.5-14.0) % Plt Count (150-450) x10^3/uL MPV (7.5-11.0) fL Gran % (36.0-66.0) % Immature Gran % (Auto) (0.00-0.4) % Nucleat RBC Rel Count (0.00-0.1) % Eos # (Auto) (0-0.5) x10^3/uL Immature Gran # (Auto) (0.00-0.03) x10^3u/L Absolute Lymphs (auto) (1.0-4.6) x10^3/uL Absolute Monos (auto) (0.0-1.3) x10^3/uL Absolute Nucleated RBC (0.00-0.01) x10^3u/L Lymphocytes % (24.0-44.0) % Monocytes % (0.0-12.0) % Eosinophils % (0.00-5.0) % Basophils % (0.0-0.4) % Absolute Granulocytes (1.4-6.9) x10^3/uL Basophils # (0-0.4) x10^3/uL PT (9.4-12.5) SECONDS INR (0.8-3.0) APTT (25.1-36.5) SECONDS Puncture Site JENNIFER ARTLINE pCO2 34 L 64 H* (35-45) mmHg pO2 190 H* 24 L* (75-100) mmHg pO2/FiO2 Ratio % Base Excess -18.6 L -14.5 L (-2.0-2.0) O2 Saturation 97.5 17.3 L (94-100) g/dF ABG pH 7.09 L* 7.03 L* (7.35-7.45) ABG HCO3 10.3 L* 16.9 L* (22-28) ABG O2 Sat (Measured) 99.5 17.4 L (95-100) % Hector Test NOT APPLICABLE NOT APPLICABLE VBG pH (7.32-7.42) VBG pCO2 at Pat Temp (42-55) mm/Hg VBG pO2 at Pat Temp (25-40) mm/Hg VBG HCO3 VBG O2 Sat ([place]) (95-100) VBG Base Excess VBG Hemoglobin VBG Carboxyhemoglobin (0.0-6.9) % T HGB A-a Gradient 481 609 a/A Ratio 0.28 0.04 Hemoglobin 13.6 13.7 Carboxyhemoglobin 1.3 0.0 (0.0-6.9) % THgb Methemoglobin 0.7 L 0.7 L (1.4-1.5) % POC Potassium (3.5-5.1) Temperature 37.0 37.0 C POC O2 Flow Rate 100 100 % Vent Mode A/C A/C Tidal Volume 500 500 cc PEEP 5.0 5.0 cmH2O Sodium (137-145) mmol/L Potassium 6.6 H* 6.8 H* (3.5-5.1) mmol/L Chloride (98-107) mmol/L Carbon Dioxide (22-30) mmol/L Anion Gap (5-15) MEQ/L BUN (7-17) mg/dL Creatinine (0.52-1.04) mg/dL Estimated GFR ML/MIN Glucose 47 L* (74-106) mg/dL Lactic Acid (0.4-2.0) Calcium (8.4-10.2) mg/dL Magnesium (1.6-2.3) mg/dL Total Bilirubin (0.2-1.3) mg/dL AST (14-36) U/L ALT (0-35) U/L Alkaline Phosphatase (38-126) U/L Troponin I (0.000-0.034) ng/mL NT-Pro-B Natriuret Pep (<300) pg/mL Serum Total Protein (6.3-8.2) g/dL Albumin (3.5-5.0) g/dL Lipase (23-300) U/L Serum HCG, Qual (NEGATIVE) Influenza Type A Ag (NEGATIVE) Influenza Type B Ag (NEGATIVE) RSV (PCR) (NEGATIVE) SARS-CoV-2 (PCR) (NEGATIVE) Slides for Path Review 04/16/23 04/16/23 04/16/23 Range/Units 12:30 12:15 11:37 WBC 10.9 H (4.0-10.5) x10^3/uL RBC 5.11 (4.1-5.4) x10^6/uL Hgb 12.9 (12.0-16.0) g/dL Hct 44.1 (35-47) % MCV 86.3 (78-100) fL MCH 25.2 L (26-32) pg MCHC 29.3 L (32-36) g/dL RDW 22.6 H (11.5-14.0) % Plt Count 238 (150-450) x10^3/uL MPV 9.6 (7.5-11.0) fL Gran % 51.0 (36.0-66.0) % Immature Gran % (Auto) 4.4 H (0.00-0.4) % Nucleat RBC Rel Count 1.2 H (0.00-0.1) % Eos # (Auto) 0.03 (0-0.5) x10^3/uL Immature Gran # (Auto) 0.48 H (0.00-0.03) x10^3u/L Absolute Lymphs (auto) 3.71 (1.0-4.6) x10^3/uL Absolute Monos (auto) 1.02 (0.0-1.3) x10^3/uL Absolute Nucleated RBC 0.13 H (0.00-0.01) x10^3u/L Lymphocytes % 34.0 (24.0-44.0) % Monocytes % 9.4 (0.0-12.0) % Eosinophils % 0.3 (0.00-5.0) % Basophils % 0.9 (0.0-0.4) % Absolute Granulocytes 5.56 (1.4-6.9) x10^3/uL Basophils # 0.10 (0-0.4) x10^3/uL PT (9.4-12.5) SECONDS INR (0.8-3.0) APTT (25.1-36.5) SECONDS Puncture Site RIGHT FEMORAL pCO2 30 L (35-45) mmHg pO2 265 H* (75-100) mmHg pO2/FiO2 Ratio 100.0 % Base Excess -19.5 L (-2.0-2.0) O2 Saturation 96.9 (94-100) g/dF ABG pH 7.09 L* (7.35-7.45) ABG HCO3 9.1 L* (22-28) ABG O2 Sat (Measured) 99.5 (95-100) % Hector Test NOT APPLICABLE VBG pH 7.80 H* (7.32-7.42) VBG pCO2 at Pat Temp 125 H* (42-55) mm/Hg VBG pO2 at Pat Temp 36 (25-40) mm/Hg VBG HCO3 Pending VBG O2 Sat ([place]) 51.5 L (95-100) VBG Base Excess Pending VBG Hemoglobin 12.2 VBG Carboxyhemoglobin 2.0 (0.0-6.9) % T HGB A-a Gradient 411 a/A Ratio 0.39 Hemoglobin 13.5 Carboxyhemoglobin 1.8 (0.0-6.9) % THgb Methemoglobin 0.8 L (1.4-1.5) % POC Potassium 4.2 (3.5-5.1) Temperature 37.0 C POC O2 Flow Rate 100 % Vent Mode A/C Tidal Volume 500 cc PEEP 5.0 cmH2O Sodium (137-145) mmol/L Potassium 6.1 H* (3.5-5.1) mmol/L Chloride (98-107) mmol/L Carbon Dioxide (22-30) mmol/L Anion Gap (5-15) MEQ/L BUN (7-17) mg/dL Creatinine (0.52-1.04) mg/dL Estimated GFR ML/MIN Glucose (74-106) mg/dL Lactic Acid (0.4-2.0) Calcium (8.4-10.2) mg/dL Magnesium (1.6-2.3) mg/dL Total Bilirubin (0.2-1.3) mg/dL AST (14-36) U/L ALT (0-35) U/L Alkaline Phosphatase (38-126) U/L Troponin I (0.000-0.034) ng/mL NT-Pro-B Natriuret Pep (<300) pg/mL Serum Total Protein (6.3-8.2) g/dL Albumin (3.5-5.0) g/dL Lipase (23-300) U/L Serum HCG, Qual (NEGATIVE) Influenza Type A Ag (NEGATIVE) Influenza Type B Ag (NEGATIVE) RSV (PCR) (NEGATIVE) SARS-CoV-2 (PCR) (NEGATIVE) Slides for Path Review YES 04/16/23 04/16/23 04/16/23 Range/Units 11:37 11:37 10:54 WBC (4.0-10.5) x10^3/uL RBC (4.1-5.4) x10^6/uL Hgb (12.0-16.0) g/dL Hct (35-47) % MCV (78-100) fL MCH (26-32) pg MCHC (32-36) g/dL RDW (11.5-14.0) % Plt Count (150-450) x10^3/uL MPV (7.5-11.0) fL Gran % (36.0-66.0) % Immature Gran % (Auto) (0.00-0.4) % Nucleat RBC Rel Count (0.00-0.1) % Eos # (Auto) (0-0.5) x10^3/uL Immature Gran # (Auto) (0.00-0.03) x10^3u/L Absolute Lymphs (auto) (1.0-4.6) x10^3/uL Absolute Monos (auto) (0.0-1.3) x10^3/uL Absolute Nucleated RBC (0.00-0.01) x10^3u/L Lymphocytes % (24.0-44.0) % Monocytes % (0.0-12.0) % Eosinophils % (0.00-5.0) % Basophils % (0.0-0.4) % Absolute Granulocytes (1.4-6.9) x10^3/uL Basophils # (0-0.4) x10^3/uL PT 18.0 H (9.4-12.5) SECONDS INR 1.72 (0.8-3.0) APTT 32.8 (25.1-36.5) SECONDS Puncture Site pCO2 (35-45) mmHg pO2 (75-100) mmHg pO2/FiO2 Ratio % Base Excess (-2.0-2.0) O2 Saturation (94-100) g/dF ABG pH (7.35-7.45) ABG HCO3 (22-28) ABG O2 Sat (Measured) (95-100) % Hector Test VBG pH (7.32-7.42) VBG pCO2 at Pat Temp (42-55) mm/Hg VBG pO2 at Pat Temp (25-40) mm/Hg VBG HCO3 VBG O2 Sat ([place]) (95-100) VBG Base Excess VBG Hemoglobin VBG Carboxyhemoglobin (0.0-6.9) % T HGB A-a Gradient a/A Ratio Hemoglobin Carboxyhemoglobin (0.0-6.9) % THgb Methemoglobin (1.4-1.5) % POC Potassium (3.5-5.1) Temperature C POC O2 Flow Rate % Vent Mode Tidal Volume cc PEEP cmH2O Sodium 127 L (137-145) mmol/L Potassium 5.9 H (3.5-5.1) mmol/L Chloride 98 (98-107) mmol/L Carbon Dioxide 6 L* (22-30) mmol/L Anion Gap 28.4 H (5-15) MEQ/L BUN 43 H (7-17) mg/dL Creatinine 1.74 H (0.52-1.04) mg/dL Estimated GFR 36.0 ML/MIN Glucose 111 H (74-106) mg/dL Lactic Acid (0.4-2.0) Calcium 9.9 (8.4-10.2) mg/dL Magnesium (1.6-2.3) mg/dL Total Bilirubin 1.50 H (0.2-1.3) mg/dL AST 58 H (14-36) U/L ALT 26 (0-35) U/L Alkaline Phosphatase 140 H (38-126) U/L Troponin I 0.041 H* (0.000-0.034) ng/mL NT-Pro-B Natriuret Pep (<300) pg/mL Serum Total Protein 5.7 L (6.3-8.2) g/dL Albumin 3.2 L (3.5-5.0) g/dL Lipase (23-300) U/L Serum HCG, Qual (NEGATIVE) Influenza Type A Ag (NEGATIVE) Influenza Type B Ag (NEGATIVE) RSV (PCR) (NEGATIVE) SARS-CoV-2 (PCR) (NEGATIVE) Slides for Path Review 04/16/23 04/16/23 04/16/23 Range/Units 10:25 09:46 08:20 WBC (4.0-10.5) x10^3/uL RBC (4.1-5.4) x10^6/uL Hgb (12.0-16.0) g/dL Hct (35-47) % MCV (78-100) fL MCH (26-32) pg MCHC (32-36) g/dL RDW (11.5-14.0) % Plt Count (150-450) x10^3/uL MPV (7.5-11.0) fL Gran % (36.0-66.0) % Immature Gran % (Auto) (0.00-0.4) % Nucleat RBC Rel Count (0.00-0.1) % Eos # (Auto) (0-0.5) x10^3/uL Immature Gran # (Auto) (0.00-0.03) x10^3u/L Absolute Lymphs (auto) (1.0-4.6) x10^3/uL Absolute Monos (auto) (0.0-1.3) x10^3/uL Absolute Nucleated RBC (0.00-0.01) x10^3u/L Lymphocytes % (24.0-44.0) % Monocytes % (0.0-12.0) % Eosinophils % (0.00-5.0) % Basophils % (0.0-0.4) % Absolute Granulocytes (1.4-6.9) x10^3/uL Basophils # (0-0.4) x10^3/uL PT (9.4-12.5) SECONDS INR (0.8-3.0) APTT (25.1-36.5) SECONDS Puncture Site pCO2 (35-45) mmHg pO2 (75-100) mmHg pO2/FiO2 Ratio % Base Excess (-2.0-2.0) O2 Saturation (94-100) g/dF ABG pH (7.35-7.45) ABG HCO3 (22-28) ABG O2 Sat (Measured) (95-100) % Hector Test VBG pH (7.32-7.42) VBG pCO2 at Pat Temp (42-55) mm/Hg VBG pO2 at Pat Temp (25-40) mm/Hg VBG HCO3 VBG O2 Sat ([place]) (95-100) VBG Base Excess VBG Hemoglobin VBG Carboxyhemoglobin (0.0-6.9) % T HGB A-a Gradient a/A Ratio Hemoglobin Carboxyhemoglobin (0.0-6.9) % THgb Methemoglobin (1.4-1.5) % POC Potassium (3.5-5.1) Temperature C POC O2 Flow Rate % Vent Mode Tidal Volume cc PEEP cmH2O Sodium (137-145) mmol/L Potassium (3.5-5.1) mmol/L Chloride (98-107) mmol/L Carbon Dioxide (22-30) mmol/L Anion Gap (5-15) MEQ/L BUN (7-17) mg/dL Creatinine (0.52-1.04) mg/dL Estimated GFR ML/MIN Glucose (74-106) mg/dL Lactic Acid 10.7 H (0.4-2.0) Calcium (8.4-10.2) mg/dL Magnesium (1.6-2.3) mg/dL Total Bilirubin (0.2-1.3) mg/dL AST (14-36) U/L ALT (0-35) U/L Alkaline Phosphatase (38-126) U/L Troponin I (0.000-0.034) ng/mL NT-Pro-B Natriuret Pep (<300) pg/mL Serum Total Protein (6.3-8.2) g/dL Albumin (3.5-5.0) g/dL Lipase (23-300) U/L Serum HCG, Qual NEGATIVE (NEGATIVE) Influenza Type A Ag NEGATIVE (NEGATIVE) Influenza Type B Ag NEGATIVE (NEGATIVE) RSV (PCR) NEGATIVE (NEGATIVE) SARS-CoV-2 (PCR) NEGATIVE (NEGATIVE) Slides for Path Review 04/16/23 04/16/23 04/16/23 Range/Units 08:20 08:20 08:20 WBC (4.0-10.5) x10^3/uL RBC (4.1-5.4) x10^6/uL Hgb (12.0-16.0) g/dL Hct (35-47) % MCV (78-100) fL MCH (26-32) pg MCHC (32-36) g/dL RDW (11.5-14.0) % Plt Count (150-450) x10^3/uL MPV (7.5-11.0) fL Gran % (36.0-66.0) % Immature Gran % (Auto) (0.00-0.4) % Nucleat RBC Rel Count (0.00-0.1) % Eos # (Auto) (0-0.5) x10^3/uL Immature Gran # (Auto) (0.00-0.03) x10^3u/L Absolute Lymphs (auto) (1.0-4.6) x10^3/uL Absolute Monos (auto) (0.0-1.3) x10^3/uL Absolute Nucleated RBC (0.00-0.01) x10^3u/L Lymphocytes % (24.0-44.0) % Monocytes % (0.0-12.0) % Eosinophils % (0.00-5.0) % Basophils % (0.0-0.4) % Absolute Granulocytes (1.4-6.9) x10^3/uL Basophils # (0-0.4) x10^3/uL PT (9.4-12.5) SECONDS INR (0.8-3.0) APTT (25.1-36.5) SECONDS Puncture Site pCO2 (35-45) mmHg pO2 (75-100) mmHg pO2/FiO2 Ratio % Base Excess (-2.0-2.0) O2 Saturation (94-100) g/dF ABG pH (7.35-7.45) ABG HCO3 (22-28) ABG O2 Sat (Measured) (95-100) % Hector Test VBG pH (7.32-7.42) VBG pCO2 at Pat Temp (42-55) mm/Hg VBG pO2 at Pat Temp (25-40) mm/Hg VBG HCO3 VBG O2 Sat ([place]) (95-100) VBG Base Excess VBG Hemoglobin VBG Carboxyhemoglobin (0.0-6.9) % T HGB A-a Gradient a/A Ratio Hemoglobin Carboxyhemoglobin (0.0-6.9) % THgb Methemoglobin (1.4-1.5) % POC Potassium (3.5-5.1) Temperature C POC O2 Flow Rate % Vent Mode Tidal Volume cc PEEP cmH2O Sodium 124 L (137-145) mmol/L Potassium 5.2 H (3.5-5.1) mmol/L Chloride 93 L (98-107) mmol/L Carbon Dioxide 15 L* (22-30) mmol/L Anion Gap 21.6 H (5-15) MEQ/L BUN 48 H (7-17) mg/dL Creatinine 1.68 H (0.52-1.04) mg/dL Estimated GFR 37.5 ML/MIN Glucose 96 (74-106) mg/dL Lactic Acid 3.7 H (0.4-2.0) Calcium 8.7 (8.4-10.2) mg/dL Magnesium 2.1 (1.6-2.3) mg/dL Total Bilirubin 1.70 H (0.2-1.3) mg/dL AST 47 H (14-36) U/L ALT 25 (0-35) U/L Alkaline Phosphatase 162 H (38-126) U/L Troponin I 0.014 (0.000-0.034) ng/mL NT-Pro-B Natriuret Pep 9250 (<300) pg/mL Serum Total Protein 6.2 L (6.3-8.2) g/dL Albumin 3.7 (3.5-5.0) g/dL Lipase 42 (23-300) U/L Serum HCG, Qual (NEGATIVE) Influenza Type A Ag (NEGATIVE) Influenza Type B Ag (NEGATIVE) RSV (PCR) (NEGATIVE) SARS-CoV-2 (PCR) (NEGATIVE) Slides for Path Review 04/16/23 Range/Units 08:20 WBC 8.1 (4.0-10.5) x10^3/uL RBC 5.15 (4.1-5.4) x10^6/uL Hgb 13.1 (12.0-16.0) g/dL Hct 42.4 (35-47) % MCV 82.3 (78-100) fL MCH 25.4 L (26-32) pg MCHC 30.9 L (32-36) g/dL RDW 22.5 H (11.5-14.0) % Plt Count 281 (150-450) x10^3/uL MPV 9.5 (7.5-11.0) fL Gran % 58.0 (36.0-66.0) % Immature Gran % (Auto) 0.4 (0.00-0.4) % Nucleat RBC Rel Count 0.0 (0.00-0.1) % Eos # (Auto) 0.05 (0-0.5) x10^3/uL Immature Gran # (Auto) 0.03 (0.00-0.03) x10^3u/L Absolute Lymphs (auto) 2.03 (1.0-4.6) x10^3/uL Absolute Monos (auto) 1.16 (0.0-1.3) x10^3/uL Absolute Nucleated RBC 0.00 (0.00-0.01) x10^3u/L Lymphocytes % 25.2 (24.0-44.0) % Monocytes % 14.4 H (0.0-12.0) % Eosinophils % 0.6 (0.00-5.0) % Basophils % 1.4 (0.0-0.4) % Absolute Granulocytes 4.67 (1.4-6.9) x10^3/uL Basophils # 0.11 (0-0.4) x10^3/uL PT (9.4-12.5) SECONDS INR (0.8-3.0) APTT (25.1-36.5) SECONDS Puncture Site pCO2 (35-45) mmHg pO2 (75-100) mmHg pO2/FiO2 Ratio % Base Excess (-2.0-2.0) O2 Saturation (94-100) g/dF ABG pH (7.35-7.45) ABG HCO3 (22-28) ABG O2 Sat (Measured) (95-100) % Hector Test VBG pH (7.32-7.42) VBG pCO2 at Pat Temp (42-55) mm/Hg VBG pO2 at Pat Temp (25-40) mm/Hg VBG HCO3 VBG O2 Sat ([place]) (95-100) VBG Base Excess VBG Hemoglobin VBG Carboxyhemoglobin (0.0-6.9) % T HGB A-a Gradient a/A Ratio Hemoglobin Carboxyhemoglobin (0.0-6.9) % THgb Methemoglobin (1.4-1.5) % POC Potassium (3.5-5.1) Temperature C POC O2 Flow Rate % Vent Mode Tidal Volume cc PEEP cmH2O Sodium (137-145) mmol/L Potassium (3.5-5.1) mmol/L Chloride (98-107) mmol/L Carbon Dioxide (22-30) mmol/L Anion Gap (5-15) MEQ/L BUN (7-17) mg/dL Creatinine (0.52-1.04) mg/dL Estimated GFR ML/MIN Glucose (74-106) mg/dL Lactic Acid (0.4-2.0) Calcium (8.4-10.2) mg/dL Magnesium (1.6-2.3) mg/dL Total Bilirubin (0.2-1.3) mg/dL AST (14-36) U/L ALT (0-35) U/L Alkaline Phosphatase (38-126) U/L Troponin I (0.000-0.034) ng/mL NT-Pro-B Natriuret Pep (<300) pg/mL Serum Total Protein (6.3-8.2) g/dL Albumin (3.5-5.0) g/dL Lipase (23-300) U/L Serum HCG, Qual (NEGATIVE) Influenza Type A Ag (NEGATIVE) Influenza Type B Ag (NEGATIVE) RSV (PCR) (NEGATIVE) SARS-CoV-2 (PCR) (NEGATIVE) Slides for Path Review YES - Progress Progress: re-examined Air Movement: fair Progress Note: 04/16/23 13:31 32-year-old with history of IV drug abuse, infective endocarditis, 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 She is given symptomatic treatment for pain, on reevaluation her pain is better. Work-up showed normal white count, chemistries creatinine of 1.6 which is around baseline. Patient has a potassium of 5.2 and mildly low sodium. CT chest/abdomen pelvis without contrast showed right-sided consolidation with moderate effusion, cardiomegaly and some distended gallbladder but no signs of a cute cholecystitis. Patient is started on Zithromax and aztreonam as she is allergic to cephalosporins. She was complaining of worsening pain again and given another dose of morphine. While she was started on aztreonam, she became pulseless arrest, CPR is started as per ACLS protocol with multiple rounds of epi, bicarb. Patient is promptly intubated. CPR continued, given Narcan as well x1. Patient has ROSC. Patient is hypotensive, given initially ketamine and started on Levophed with impr ovement in blood pressure to 106 and Versed drip was turned on. ABG showed pH of 7.09 and a bicarb of 9 and given another ampule of bicarb. While in the CPR patient did receive an ampule of calcium. EKG did not show any tall T waves. EKG before and after the arrest has no ST elevations. Repeat t roponin after the rest is mildly elevated 0.04. I have discussed with Dr. Collins [place] hospitalist, reviewed history, work-up, agreed with transfer. 04/16/23 13:40 Blood Culture(s) Obtained: Yes Discussed with : Other (Dr. Huan frederick [facility] at 1310) Counseled pt/family regarding: lab results, diagnosis, rad results Medical Desision Making - Discussion of managment Care discussed with:: hospitalist () Reviewed:: Test results Agreed on:: Treatment plan, decision to admit Will see patient: in hospital - Diagnostic Testing Diagnostic test were ordered, analyzed, and reviewed by me: Yes Radiological Interpretation: Interpreted by me, Reviewed by me - Risk of complications The pt has a high risk of morbidity or mortality based on: Drug therapy requiring intensive monitoring for toxicity - Departure Departure Disposition: Transfer Clinical Impression: Respiratory failure, Cardiac arrest with pulseless electrical activity, Pneumonia, Pleural effusion Condition: Critical Critical Care Time: Yes Critical Care Time(excluding separately billable procedures): Critical 75-104 mins Referrals: SAMSON WELCH MD [Primary Care Provider] - Follow up/PCP as directed
[2023-04-16] MEDS ORDERED: Merrem 1 GM in Sodium Chloride 100ML MINI-BAG PLUS 100 ML IV ONE (13:29)
[2023-04-16 13:45] LABS: A-aADO2 609; ABG HEMOGLOBIN 13.7; ARTERIAL BLD GAS O2 SATURATION 17.4 % (95-100); ARTERIAL BLD GAS TIDAL VOLUME 500 cc; ARTERIAL BLOOD GAS BASE EXCESS -14.5 (-2.0-2.0); ARTERIAL BLOOD GAS FIO2 100 %; ARTERIAL BLOOD GAS VENT MODE A/C; HCO3- 16.9 (22-28); HGB O2 SAT 17.3 g/dF (94-100); Methhemoglobin 0.7 % (1.4-1.5); paO2 pAO1 0.04
[2023-04-16 13:46] LABS: ARTERIAL BLOOD GAS PCO2 64 mmHg (35-45); ARTERIAL BLOOD GAS PO2 24 mmHg (75-100); ARTERIAL BLOOD GAS pH 7.03 (7.35-7.45)
[2023-04-16] MEDS ORDERED: PHENYLEPHRINE HCL ONE (13:46)
[2023-04-16] MEDS ORDERED: Dextrose 5%/Water IV Soln. 250 ML 250 ML IV ONE (13:46)
[2023-04-16 13:47] LABS: ABG POTASSIUM 6.8 (3.5-5.1); ABG SITE ARTLINE
[2023-04-16 13:47] LABS: Slide Review 1 YES
[2023-04-16] MEDS ORDERED: Zemuron 100 MG/10 ML IV ONE (13:58)
[2023-04-16] MEDS ORDERED: D50W 50 ml Abboject IV ONE (13:59)
[2023-04-16 14:02] LABS: A-aADO2 481; ABG HEMOGLOBIN 13.6; ARTERIAL BLD GAS O2 SATURATION 99.5 % (95-100); ARTERIAL BLD GAS TIDAL VOLUME 500 cc; ARTERIAL BLOOD GAS BASE EXCESS -18.6 (-2.0-2.0); ARTERIAL BLOOD GAS FIO2 100 %; ARTERIAL BLOOD GAS PCO2 34 mmHg (35-45); ARTERIAL BLOOD GAS PO2 190 mmHg (75-100); ARTERIAL BLOOD GAS VENT MODE A/C; ARTERIAL BLOOD GAS pH 7.09 (7.35-7.45); CARBOXYHEMOGLOBIN 1.3 % THgb (0.0-6.9); HCO3- 10.3 (22-28); HGB O2 SAT 97.5 g/dF (94-100); Methhemoglobin 0.7 % (1.4-1.5); paO2 pAO1 0.28
[2023-04-16] MEDS ORDERED: CALCIUM CHLORIDE 10% 1000 MG ONE (14:02)
[2023-04-16 14:03] LABS: ABG POTASSIUM 6.6 (3.5-5.1); ABG SITE ALINE
[2023-04-16 14:04] VITALS: BP 66/26; PULSE 109; RESP 6
[2023-04-17 00:32] VITALS: O2SAT 99
== END 2023-04-16 14:14 | disposition short-term general hospital (02) ==
LOC: ED 08:03
DX: J96.90 Respiratory failure, unspecified, unspecified whether with hypoxia or hypercapnia (principal); I46.9 Cardiac arrest, cause unspecified; J18.9 Pneumonia, unspecified organism; J90 Pleural effusion, not elsewhere classified; R07.9 Chest pain, unspecified; R05.9 Cough, unspecified; M79.10 Myalgia, unspecified site; R53.83 Other fatigue; R10.9 Unspecified abdominal pain; I13.0 Hypertensive heart and chronic kidney disease with heart failure and stage 1 through stage 4 chronic kidney disease, or unspecified chronic kidney disease; I50.9 Heart failure, unspecified; E11.22 Type 2 diabetes mellitus with diabetic chronic kidney disease; N18.30 Chronic kidney disease, stage 3 unspecified; Z79.01 Long term (current) use of anticoagulants; Z79.899 Other long term (current) drug therapy; Z28.310 Unvaccinated for COVID-19
CPT/HCPCS: 0241U; 31500; 36000; 36415; 36600; 51702; 71045; 71250; 74018; 74176; 80053; 82375; 82803; 82805; 82947; 83605; 83690; 83735; 83880; 84484; 84703; 85025; 85610; 85730; 87040; 92950; 93005; 94002; 94799; 96374; 96375; 96376; 99285; 99291; 99292; J0171; J0456; J2250; J2270; J2310; J2371; J2405